=== PATIENT | male | born 1955 | race Hispanic/Latino ===

== ENCOUNTER 2019-02-05 22:28 | Emergency (ER) | payer BC ==
[2019-02-05] MEDS ORDERED: ONDANSETRON 4 MG/2 ML VIAL ONE (23:21)
[2019-02-05] MEDS ORDERED: KETOROLAC 30 MG/ML INJ ONE (23:21)
[2019-02-05] MEDS ORDERED: DIPHENHYDRAMINE 50 MG/ML VIAL ONE (23:21)
--- NOTE | 2019-02-06 00:08 | EDPHYS ---
Physician Documentation [facility] Name: Issa Escalera Age: 63 yrs Sex: Male : 1955 Arrival Date: 02/05/2019 Time: 22:29 Bed 7 Private MD: Olu Kennedy R ED Physician Montez Madsen Historical: - Allergies: 02/05 23:12 No Known Allergies; bb - Home Meds: 23:01 Amoxicillin-Pot Clavulanate Oral [Active]; Fioricet 50-325-40 mg Oral tab 1 tab daily bb [Active]; ezetimibe oral oral [Active]; glimepiride 2 mg Oral tab 1 tab twice a day [Active]; quetiapine 25 mg oral tab 1 tab nightly [Active]; Lyrica Oral [Active]; atorvastatin 40 mg oral tab 1 tab once daily [Active]; 23:12 telmisartan-hydrochlorothiazid 80-12.5 mg oral tab 1 tab once daily [Active]; botox bb injections every 3 months [Active]; - PMHx: 23:01 High Cholesterol; Hypertension; Migraines; Diabetes - NIDDM; bb - PSHx: 23:01 Eye surgery x3; Nasal surgery for bone spurs; right ankle; back surgery; bb - Immunization history:: Adult Immunizations up to date. - Social history:: Smoking status: Patient/guardian denies using tobacco, Patient/guardian denies using alcohol, street drugs. - Ebola Screening: : No symptoms or risks identified at this time. Vital Signs: 23:02 BP 175 / 105; Pulse 79; Resp 20 S; Temp 98.4(O); Pulse Ox 97% on R/A; Weight 90.72 kg bb (R); Height 5 ft. 7 in. (170.18 cm) (R); Pain 10/10; 23:17 BP 154 / 94; Pulse 66; Resp 20; Pulse Ox 95% on R/A; aa1 23:49 BP 128 / 77; Pulse 62; Resp 18; Pulse Ox 95% on R/A; Pain 3/10; aa1 23:02 Body Mass Index 31.32 (90.72 kg, 170.18 cm) bb MDM: 22:53 Patient medically screened. tw4 Administered Medications: 23:25 Drug: TORadol 30 mg Route: IVP; Site: right wrist; lp1 23:25 Drug: Zofran 4 mg Route: IVP; Site: right wrist; lp1 23:25 Drug: Benadryl 25 mg Route: IVP; Site: right wrist; lp1 Disposition: 02/06/19 00:07 Discharged to Home. Impression: Migraine with aura, not intractable, with status migrainosus. - Condition is Stable. - Discharge Instructions: Migraine Headache, Migraine Headache, [id number]. - Prescriptions for Zofran 4 mg Oral Tablet - take 1 tablet by ORAL route every 12 hours As needed; 6 tablet. - Medication Reconciliation Form, Thank You Letter, Antibiotic Education, Prescription Opioid Use form. - Follow up: Olu Kennedy MD; When: Upon discharge from the Emergency Department; Reason: If symptoms return, Recheck today's complaints, Continuance of care. - Problem is new. - Symptoms have improved. Signatures: Pooja Piedra RN RN aa1 Herminia Abel RN RN bb Brittaney Beyer RN RN lp1 Montez Madsen MD MD tw4 Corrections: (The following items were deleted from the chart) 23:12 23:01 Allergies: No Known Allergies; hedy knott 02/06 00:24 00:07 02/06/2019 00:07 Discharged to Home. Impression: Migraine with aura, not aa1 intractable, with status migrainosus. Condition is Stable. Forms are Medication Reconciliation Form, Thank You Letter, Antibiotic Education, Prescription Opioid Use. Follow up: Olu Kennedy; When: Upon discharge from the Emergency Department; Reason: If symptoms return, Recheck today's complaints, Continuance of care. Problem is new. Symptoms have improved. tw4
--- NOTE | 2019-02-06 00:08 | ER ---
Nurse's Notes [facility] Name: Issa Escalera Age: 63 yrs Sex: Male : 1955 Arrival Date: 02/05/2019 Time: 22:29 Bed 7 Private MD: Olu Kennedy R Diagnosis: Migraine with aura, not intractable, with status migrainosus Presentation: 02/05 22:35 Presenting complaint: Patient states: he has history of migraines and started having a bb bad migraine today around lunchtime. Transition of care: patient was not received from another setting of care. Onset of symptoms was February 05, 2019. Risk Assessment: Do you want to hurt yourself or someone else? Patient reports no desire to harm self or others. Initial Sepsis Screen: Does the patient meet any 2 criteria? No. Patient's initial sepsis screen is negative. Does the patient have a suspected source of infection? No. Patient's initial sepsis screen is negative. Care prior to arrival: None. 22:35 Method Of Arrival: Ambulatory bb 22:35 Acuity: MADELINE 4 bb Historical: - Allergies: 23:12 No Known Allergies; bb - Home Meds: 23:01 Amoxicillin-Pot Clavulanate Oral [Active]; Fioricet 50-325-40 mg Oral tab 1 tab daily bb [Active]; ezetimibe oral oral [Active]; glimepiride 2 mg Oral tab 1 tab twice a day [Active]; quetiapine 25 mg oral tab 1 tab nightly [Active]; Lyrica Oral [Active]; atorvastatin 40 mg oral tab 1 tab once daily [Active]; 23:12 telmisartan-hydrochlorothiazid 80-12.5 mg oral tab 1 tab once daily [Active]; botox bb injections every 3 months [Active]; - PMHx: 23:01 High Cholesterol; Hypertension; Migraines; Diabetes - NIDDM; bb - PSHx: 23:01 Eye surgery x3; Nasal surgery for bone spurs; right ankle; back surgery; bb - Immunization history:: Adult Immunizations up to date. - Social history:: Smoking status: Patient/guardian denies using tobacco, Patient/guardian denies using alcohol, street drugs. - Ebola Screening: : No symptoms or risks identified at this time. Assessment: 23:40 Reassessment: Patient appears in no apparent distress at this time. Patient and/or aa1 family updated on plan of care and expected duration. Pain level reassessed. Patient is alert, oriented x 3, equal unlabored respirations, skin warm/dry/pink. Pt reports pain has decreased to a 3 or 4 Patient states feeling better. Patient states symptoms have improved. Vital Signs: 23:02 BP 175 / 105; Pulse 79; Resp 20 S; Temp 98.4(O); Pulse Ox 97% on R/A; Weight 90.72 kg bb (R); Height 5 ft. 7 in. (170.18 cm) (R); Pain 10/10; 23:17 BP 154 / 94; Pulse 66; Resp 20; Pulse Ox 95% on R/A; aa1 23:49 BP 128 / 77; Pulse 62; Resp 18; Pulse Ox 95% on R/A; Pain 3/10; aa1 23:02 Body Mass Index 31.32 (90.72 kg, 170.18 cm) ED Course: 22:29 Patient arrived in ED. es 22:32 Olu Kennedy MD is Private Physician. es 22:50 Triage completed. bb 22:53 Montez Madsen MD is Attending Physician. tw4 23:02 Arm band placed on Patient placed in an exam room, on a stretcher, on pulse oximetry. bb Family accompanied patient. 23:12 Inserted saline lock: 20 gauge in right wrist, using aseptic technique. bb 23:17 Pooja Piedra RN is Primary Nurse. aa1 02/06 00:06 Olu Kennedy MD is Referral Physician. tw4 Administered Medications: 02/05 23:25 Drug: TORadol 30 mg Route: IVP; Site: right wrist; lp1 23:25 Drug: Zofran 4 mg Route: IVP; Site: right wrist; lp1 23:25 Drug: Benadryl 25 mg Route: IVP; Site: right wrist; lp1 Outcome: 02/06 00:07 Discharge ordered by . tw4 00:24 Patient left the ED. aa1 Signatures: Pooja Piedra RN RN aa1 Lizet Blum Brenda, RN RN Brittaney Beyer RN RN 1 Montez Madsen MD MD tw4 Corrections: (The following items were deleted from the chart) 02/05 23:12 23:01 Allergies: No Known Allergies; hedy knott
[2019-02-06 11:40] VITALS: TEMP 98.4
[2019-02-06 11:41] VITALS: O2SAT 95
[2019-02-06 11:42] VITALS: BP 128/77
== END 2019-02-06 00:24 | disposition home or self-care (01) ==
LOC: ER 22:28
DX: G43.101 Migraine with aura, not intractable, with status migrainosus (principal); I10 Essential (primary) hypertension; E11.9 Type 2 diabetes mellitus without complications; E78.00 Pure hypercholesterolemia, unspecified
CPT/HCPCS: 96374; 96375; 99283; J2405

== ENCOUNTER 2020-05-11 11:34 | Emergency (ER) | payer OTHER, BC ==
--- NOTE | 2020-05-11 13:34 | RAD REPORT ---
EXAM DESCRIPTION: RAD - Chest Single View - 05/11/2020 1:19 pm CLINICAL HISTORY: COUGH Chest pain. COMPARISON: CHEST SINGLE VIEW dated 02/27/2010; CHEST PA AND LAT 2 VIEW dated 11/30/2006 FINDINGS: Portable technique limits examination quality. Mild bilateral interstitial lung opacities are seen which could indicate interstitial pneumonia. No f ocal consolidation is seen. The heart is normal in size. No displaced fractures. IMPRESSION: Mild interstitial pneumonia pattern is present.
--- OUTSIDE RECORDS SUMMARY | 2020-05-11 14:01 | XMS REPORT | Clinical Summary ---
:1955 Author Organization [facility] Address [address] [place] [address] Care Team Providers Name Role Phone Olu Castellon Primary Care Provider [phone] Allergies No Known Allergies Medications Medication Sig Dispensed Refills Start Date End Date Status amLODIPine Take 10 mg by 0 Activ e (NORVASC) 10 MG mouth daily. tablet atorvastatin Take 40 mg by 0 Act coral (LIPITOR) 40 MG mouth daily. tablet QUEtiapine Take 25 mg by 0 Activ e (SEROQUEL) 25 MG mouth nightly. tablet butalbital-acetamin Take 1 tablet 0 Active ophen-caffeine by mouth every (FIORICET, ESGIC) 6 (six) hours 50-325-40 mg per as needed for tablet Headaches. pregabalin (LYRICA) Take 75 mg by 0 Active 75 MG capsule mouth daily. glimepiride Take 2 mg by 0 Activ e (AMARYL) 2 MG mouth 2 (two) tablet times daily. ezetimibe (ZETIA) Take 10 mg by 0 Active 10 mg tablet mouth daily. naproxen (NAPROSYN) Take 500 mg by 0 Active 500 MG tablet mouth 2 (two) times daily with breakfast and dinner. traMADol (ULTRAM) Take 2 tablets 20 tablet 0 12/14/2019 Active 50 mg tablet (100 mg total) by mouth every 6 (six) hours as needed for Pain. Max Daily Amount: 400 mg ciprofloxacin HCl Take 1 tablet 6 tablet 0 12/14/2019 02 (CIPRO) 500 MG (500 mg total) 0 tablet by mouth 2 (two) times daily for 3 days Start taking day before you return to Urology clinic. docusate sodium Take 1 capsule 10 capsule 0 12/14/2019 02 Discontinued (COLACE) 100 MG (100 mg total) 0 capsule by mouth 2 (two) times daily for 5 days. docusate sodium Take 1 capsule 10 capsule 0 12/14/2019 02 (COLACE) 100 MG (100 mg total) 0 capsule by mouth 2 (two) times daily for 5 days. Active Problems Problem Noted Date Prostate cancer 12/12/2019 Encounters Date Type Specialty Care Team Description 12/12/2019 Anesthesia Event Thomas Vora MD 12/12/2019 Surgery Link, Sami ROBOTIC MD Ramy LAPAROSCOPY,PRO STAT ECTOMY W/ PELVI C LYMPH NODE DISSECTION 12/12/2019 - Hospital Encounter General Internal LinkSami 12/14/2019 Medicine MD Ramy 12/11/2019 Hospital Encounter Pre-Admission Testing 07/11/2019 Hospital Encounter Magnetic Resonance Link, Sami Pr ostate cancer Imaging MD Ramy ([facility]) 3, [facility] Josh Mr 07/01/2019 Outside Orders Central Scheduling Link, Sami Prosta te cancer MD Ramy ([facility]) (Primary Dx) after 05/11/2019 Social History Tobacco Use Types Packs/Day Years Used Date Never Smoker Smokeless Tobacco: Never Used Alcohol Use Drinks/Week oz/Week Comments No Alcohol Habits Answer Date Recorded How often do you have a drink containing alcohol? Never 12/11/2019 How many drinks containing alcohol do you have on a typical Not asked day when you are drinking? How often do you have six or more drinks on one occasion? No t asked Sex Assigned at Date Recorded Not on file Job Start Date Occupation Industry Not on file Not on file Not on file Travel History Travel Start Travel End No recent travel history available. Last Filed Vital Signs Vital Sign Reading Time Taken Blood Pressure 123/68 12/14/2019 11:53 AM COST RECOVERY TECHNICIAN Pulse 74 12/14/2019 11:53 AM COST RECOVERY TECHNICIAN Temperature 37.6 C (99.7 F) 12/14/2019 11:53 AM COST RECOVERY TECHNICIAN Respiratory Rate 18 12/14/2019 11:53 AM COST RECOVERY TECHNICIAN Oxygen Saturation 95% 12/14/2019 11:53 AM COST RECOVERY TECHNICIAN Inhaled Oxygen Concentration - - Weight 88.8 kg (195 lb 12.3 oz) 12/12/2019 6:5 3 AM COST RECOVERY TECHNICIAN Height 172.7 cm (5' 8") 12/12/2019 6:53 AM COST RECOVERY TECHNICIAN Body Mass Index 29.77 12/12/2019 6:53 AM COST RECOVERY TECHNICIAN Plan of Treatment Not on file Procedures Procedure Name Priority Date/Time Associated Comments Diagnosis POCT-GLUCOSE METER Routine 12/14/2019 11:55 Resul ts for this AM COST RECOVERY TECHNICIAN procedure are i n the results section. POCT-GLUCOSE METER Routine 12/14/2019 7:44 Resul ts for this AM COST RECOVERY TECHNICIAN procedure are i n the results section. CBC W/PLT COUNT & Routine 12/14/2019 4:46 Result s for this AUTO DIFFERENTIAL AM COST RECOVERY TECHNICIAN procedure are in the results section. CBC W/PLT COUNT & Routine 12/14/2019 4:46 Result s for this AUTO DIFFERENTIAL AM COST RECOVERY TECHNICIAN procedure are in the results section. BASIC METABOLIC PANEL Routine 12/14/2019 4:43 Re sults for this (7) AM COST RECOVERY TECHNICIAN procedure are i n the results section. POCT-GLUCOSE METER Routine 12/13/2019 10:14 Resul ts for this PM COST RECOVERY TECHNICIAN procedure are i n the results section. POCT-GLUCOSE METER Routine 12/13/2019 5:59 Resul ts for this PM COST RECOVERY TECHNICIAN procedure are i n the results section. TRANSFUSION SERVICE 12/13/2019 5:51 REPORT - SCAN PM COST RECOVERY TECHNICIAN POCT-GLUCOSE METER Routine 12/13/2019 11:42 Resul ts for this AM COST RECOVERY TECHNICIAN procedure are i n the results section. POCT-GLUCOSE METER Routine 12/13/2019 8:32 Resul ts for this AM COST RECOVERY TECHNICIAN procedure are i n the results section. CBC W/PLT COUNT & Routine 12/13/2019 4:13 Result s for this AUTO DIFFERENTIAL AM COST RECOVERY TECHNICIAN procedure are in the results section. CBC W/PLT COUNT & Routine 12/13/2019 4:13 Result s for this AUTO DIFFERENTIAL AM COST RECOVERY TECHNICIAN procedure are in the results section. BASIC METABOLIC PANEL Routine 12/13/2019 4:13 Re sults for this (7) AM COST RECOVERY TECHNICIAN procedure are i n the results section. POCT-GLUCOSE METER Routine 12/12/2019 9:01 Resul ts for this PM COST RECOVERY TECHNICIAN procedure are i n the results section. POCT-GLUCOSE METER Routine 12/12/2019 2:25 Resul ts for this PM COST RECOVERY TECHNICIAN procedure are i n the results section. HEMOGLOBIN AND Routine 12/12/2019 2:14 Results f or this HEMATOCRIT PM COST RECOVERY TECHNICIAN procedure are i n the results section. BASIC METABOLIC PANEL Routine 12/12/2019 2:14 Re sults for this (7) PM COST RECOVERY TECHNICIAN procedure are i n the results section. TISSUE EXAM AP Routine 12/12/2019 9:36 Results for this AM COST RECOVERY TECHNICIAN procedure are i n the results section. ABORH, MANUAL STAT 12/12/2019 8:15 Results fo r this AM COST RECOVERY TECHNICIAN procedure are i n the results section. PROCEDURE W/ DAVINCI 12/12/2019 7:30 Prostate cancer AM COST RECOVERY TECHNICIAN (HCC) Case Notes 4 HRS PER ADDISON Special Needs (DAVINCI XI - XI REQUESTED) ROBOTIC LAPAROSCOPY,PROSTATECTOMY W/ 12/12/2019 7:30 AM COST RECOVERY TECHNICIAN Prostate cancer PELVIC LYMPH NODE DISSECTION (HCC) Case Notes 4 HRS PER ADDISON Special Needs (DAVINCI XI - XI REQUESTED) POCT-GLUCOSE METER Routine 12/12/2019 6:46 AM Re sults for this COST RECOVERY TECHNICIAN procedure are i n the results section. TYPE AND SCREEN, Routine 12/12/2019 6:36 AM Resu lts for this AUTOMATED COST RECOVERY TECHNICIAN procedure are i n the results section. MR PELVIS WITH & Routine 07/11/2019 9:50 AM Prostate cancer R esults for this WITHOUT IV CONTRAST CDT (HCC) procedur e are in the results section. POCT-CREATININE Routine 07/11/2019 8:47 AM Resul ts for this CDT procedure are i n the results section. after 05/11/2019 Results POC-Glucose meter (12/14/2019 11:55 AM COST RECOVERY TECHNICIAN)Only the most recent of9 results within the time period is included. POC-Glucose Meter 162 (H)Comment: : TESTED 70 - 110 mg/dL [facility] AT [address] [facility], [address]: Merchandise Flow Team Leader/Heat Curer ID = [id number] for ASTON VANEGAS Specimen Blood Performing Organization Address City/State/Zipcode Phone Number [facility] [address] [place] [address] CENTER CBC with platelet count + automated diff (12/14/2019 4:46 AM COST RECOVERY TECHNICIAN)Only the most recent of2 resultswithin the time period is included. WBC 10.1 3.5 - 10.5 K/L [facility] RBC 4.07 (L) 4.63 - 6.08 M/L [facility] Hemoglobin 11.1 (L) 13.7 - 17.5 GM/DL [facility] Hematocrit 34.4 (L) 40.1 - 51.0 % [facility] MCV 84.5 79.0 - 92.[address] [facility] MCH 27.3 25.7 - 32.2 pg [facility] MCHC 32.3 32.3 - 36.5 GM/DL [facility] RDW 13.5 11.6 - 14.4 % [facility] Platelets 167 150 - 450 K/CU MM [facility] MPV 10.5 9.4 - 12.4 fL [facility] nRBC 0 0 - 0 /100 WBC [facility] % Neutros 75 % [facility] % Lymphs 15 % [facility] % Monos 8 % [facility] % Eos 1 % [facility] % Baso 0 % [facility] # Neutros 7.58 (H) 1.78 - 5.38 K/L [facility] # Lymphs 1.54 1.32 - 3.57 K/L [facility] # Monos 0.84 (H) 0.30 - 0.82 K/L [facility] # Eos 0.09 0.04 - 0.54 K/L [facility] # Baso 0.04 0.01 - 0.08 K/L [facility] Immature Granulocytes-Relative 0 0 - 1 % C [facility] Specimen Blood Performing Organization Address City/[facility]/Zipcode Phone Number [facility] [address] [place] [address] CENTER Basic Metabolic Panel - In AM (12/14/2019 4:43 AM COST RECOVERY TECHNICIAN)Only the most recent of3 resultswithin the time period is included. Sodium 136 136 - 145 meq/L [facility] Potassium 3.8 3.5 - 5.1 meq/L [facility] Chloride 105 98 - 107 meq/L [facility] CO2 25 22 - 29 meq/L [facility] BUN 14 7 - 21 mg/dL [facility] Creatinine 0.91 0.57 - 1.25 mg/dL [facility] Glucose 131 (H) 70 - 105 mg/dL [facility] Calcium 8.2 (L) 8.4 - 10.2 mg/dL [facility] EGFR 84Comment: ESTIMATED GFR IS mL/min/1.73 sq m [facility] NOT ACCURATE CREATININE [facility] CLEARANCE IN PREDICTING GLOMERULAR FILTRATION RATE. ESTIMATED GFR IS NOT APPLICABLE FOR DIALYSIS PATIENTS. Specimen Blood Narrative Performed At Merchandise Flow Team Leader ID - [facility] Performing Organization Address City/[facility]/Zipcode Phone Number [facility] [address] [place] [address] [employer] TRANSFUSION SERVICE REPORT - SCAN (12/13/2019 5:51 PM COST RECOVERY TECHNICIAN) Narrative Performed At This result has an attachment that is no t available. Hemoglobin and hematocrit (12/12/2019 2:14 PM COST RECOVERY TECHNICIAN) Hemoglobin 11.9 (L) 13.7 - 17.5 GM/DL [facility] Hematocrit 36.7 (L) 40.1 - 51.0 % [facility] Specimen Blood Narrative Performed At Merchandise Flow Team Leader ID - [id number] [facility] CENTER Performing Organization Address City/State/Zipcode Phone Number [facility] [address] [place] [address] CENTER Tissue Exam (12/12/2019 9:36 AM COST RECOVERY TECHNICIAN) Case Report Surgical Pathology Report Case: [id number] [facility] Authorizing Provider:Sami Wright MD Collected: 12/12/2019 0936 [facility] Ordering Location: [facility] Received:12/13/2019 0832 SERVICES Pathologist: Sim Arrington MD Specimens: A) - Lymph No de, CHASE PROSTATIC LYMPH NODES B) - Lymph Node, Left pelvic lymph nodes C) - Lymph Node, Right pelvic lymph nodes D) - Prostate DIAGNOSIS A. LYMPH NODES, PERIPROSTATIC, DISSECTION [facility] - THREE BENIGN LYMPH NODES (0/3) [facility] B. LYMPH NODES, LEFT PELVIC, DISSECTION - FOUR BENIGN LYMPH NODES (0/4) C. LYMPH NODES, RIGHT PELVIC, DISSECTION - FIVE BENIGN LYMPH NODES (0/5) D. PROSTATE, ROBOTIC-ASSISTED RADICAL PROSTATECT DARRELL: - ADENOCARCINOMA, ELTON 3+4=7, FOCAL EXTRAP ROSTATIC EXTENSION, SURGICAL MARGINS NEGATIVE SEMINAL VESICLES, ROBOTIC-ASSISTED RADICAL FL OSTATECTOMY: - NO PATHOLOGIC DIAGNOSIS Signing Pathologist Direct Phone Line: COMMENT Sections show extensive bila teral cancer in anterior transition zone. There are smaller cancers in the peripheral zone. The focal extraprostatic extension is anteriorly on the right but is well clear o [facility] f the surgical margins. Exc ellent preservation of the neurovascular bundles is noted from examination of the surgical specimen. [facility] REPORT PROSTATE GLAND: Radical Pros tatectomy(Prostate - All Specimens) [facility] ER 8th Edition - Protocol posted: 01/02/2019 : SPECIMEN Procedure:Radical prostatectomy Prostate Size: Prostate Weight (g):89 g Prostate Greatest Dimension (Centimeter s):6.6 cm Additional Dimension (Centimeters): 4.2 cm Additional Dimension (Centimeters): 3.6 cm TUMOR Histologic Type:Acinar adenocarcino ma Histologic Grade: Grade Group and Gle ason Score:Grade group 2 (Elton Score 3 + 4 = 7) Percentage of Pattern 4:30 % : Percentage of Pattern 4:30 % Percentage of Pattern 5:3 % Intraductal Carcinoma (IDC):Not identif ied Extraprostatic Extension (EPE):Present, focal Location of Extraprostatic Extension: Right anterior Urinary Bladder Neck Invasion:Not ident ified Seminal Vesicle Invasion:Not identified Treatment Effect:No known presurgical t herapy Lymphovascular Invasion:Not Identified Perineural Invasion:Present MARGINS Margins:Uninvolved by invasive carcinom a LYMPH NODES Number of Lymph Nodes Involved:0 Number of Lymph Nodes Examined:12 PATHOLOGIC STAGE CLASSIFICATION (pTNM, AJCC 8th Edition) Primary Tumor (pT):pT3a Regional Lymph Nodes (pN):pN0 ADDITIONAL FINDINGS Additional Findings: High-grade prostatic intraepithelial neoplasia (PIN) Additional Findings:Nodular prostatic h yperplasia CPT Code(s) 70145 X 3 [facility] [address] [facility] CLINICAL HISTORY Prostate cancer [facility] SPECIMEN SOURCE A. Lymph node. B. Lymph node. [facility] C. Lymph node. D. Prostate [facility] A. Received in formalin labe led with the patient's name, accession number and "periprostatic lymph nodes" is a 3.9 x 2.5 x 0.3 cm aggregate of vergara-yellow fibrofatty adipose tissue, which is entirely submitted in A1-A2. [facility] B. Received in formalin labe led with the patient's name, accession number and "left pelvic lymph nodes" are three possible vergara-pink lymph nodes with attached soft tissue that range from 1.0 to 2.7 cm in greatest dimension. The specimen is entirely partida bmitted as follows: Section code: B1-B2-one lymph node, bisected B3-B4, one lymph node, bisected B5-one lymph node, bisected B6-remainder of soft tissue C. Received in formalin labe led with the patient's name, accession number and "right pelvic lymph nodes" is a 5.8 x 3.4 x 1.0 cm portion of vergara-yellow fibrofatty adipose tissue containing three vergara-pink lymph nodes that range from 0.7 to 2.3 cm in greatest dimension. The specimen is entirely submitted as follows: Section code: C1-one lymph node, bisected C2-one lymph node, bisected C3-one lymph node, bisected [id number]-rgwjsmupn of soft tissue D. Received in formalin labe led with the patient's name, accession number and "prostate" is an 89 gm total prostatectomy specimen, which consists of an 80.3 gm, 6.6 (transverse) x 4.2 (apex-base) x 3.6 (anterior-posterior) cm pros navarro, a 2.5 x 1.2 x 0.5 cm right seminal vesicle, a 2.5 x 1.3 x 0.4 cm left seminal vesicle, a 3.5 cm in length x 0.3 cm in diameter right vas deferens, and a 2.4 cm in lengt h x 0.3 cm in diameter left vas deferens. The right half is inked black, and the left half is inked blue. The specimen is serially sectioned from apex to base to reveal a vergara-pink, heterogenous, focally spongy cut surface. The specimen is entirely partida bmitted as follows: Section code: D1-apex margin, radially sectioned D2-bladder base margin, radially sectioned [id number], sequentially submitted from ape x to base [id number]-[id number] seminal vesicle and vas deferens [id number] seminal vesicle and vas deferens PA/ew MICROSCOPIC DESCRIPTION Performed. [facility] Specimen Tissue Tissue - Structure of lymph node (body s tructure) Tissue - Structure of lymph node (body s tructure) Tissue - Prostatic structure (body struc ture) Performing Organization Address City/State/Zipcode Phone Number [place] [phone] [place] [address] CENTER ABORH, manual (12/12/2019 8:15 AM COST RECOVERY TECHNICIAN) ABO Grouping O [facility] Rh Factor POS [facility] Specimen Blood Performing Organization Address City/State/Zipcode Phone Number [facility] [address] [place] [address] Type and screen, automated (12/12/2019 6:36 AM COST RECOVERY TECHNICIAN) ABO/RH AUTOMATED (BEAKER) O POSITIVE [facility] Ab Scrn NEGATIVE [facility] Specimen Blood Performing Organization Address City/State/Zipcode Phone Number [facility] [address] [place] [address] MR pelvis without & with IV contrast (07/11/2019 9:50 AM CDT) Specimen Narrative Performed At FINAL REPORT [employer] TECHNIQUE: MRI of the prostate WITHOUT a nd WITH intravenous contrast. INDICATION: PROSTATE CANCER. COMPARISON: None. FINDINGS: PROSTATE: The prostate is enlarged measu ring 5.5 x 5.6 x 6.1 cm (96.7 cc). A indistinct noncircumcised, homoge neously hypointense 2.8 x 1.5 x 4.2 cm lesion centered along the anter ior aspect of the transitional zone (series 4, image 16 an d series 5, image 11). This lesion does demonstrate restricted diffu fermin (series 9, image 35) and prompt arterial phase enhancement. No di sruption of the prostatic capsule. Multiple heterogeneously enhancing, pred ominantly T2 hyperintense nodules and the transitional zone compat ible with benign prostatic hypertrophy nodules. No focal T2 signal abnormalities in the peripheral zone. SEMINAL VESICLES: Unremarkable. LYMPH NODES: No pelvic lymphadenopathy. BLADDER: Unremarkable. RECTUM: Unremarkable. PERITONEUM/RETROPERITONEUM: No free flui d. BONES AND SOFT TISSUES: Unremarkable. IMPRESSION: 1.Highly suspicious 4 cm indistinct mass in the anterior transitional zone as above (PI-RADS 5). No evidence o f local regional invasion. 2.Moderately enlarged prostate with mult iple BPH nodules. Signed: Sherif Bell MD Report Verified Date/Time:07/12/2019 13:06:34 Reading Location: [address] Procedure Note Interface, External Ris In - 07/12/2019 1:08 PM CDT FINAL REPORT TECHNIQUE: MRI of the prostate WITHOUT a nd WITH intravenous contrast. INDICATION: PROSTATE CANCER. COMPARISON: None. FINDINGS: PROSTATE: The prostate is enlarged measu ring 5.5 x 5.6 x 6.1 cm (96.7 cc). A indistinct noncircumcised, homoge neously hypointense 2.8 x 1.5 x 4.2 cm lesion centered along the anter ior aspect of the transitional zone (series 4, image 16 an d series 5, image 11). This lesion does demonstrate restricted diffu fermin (series 9, image 35) and prompt arterial phase enhancement. No di sruption of the prostatic capsule. Multiple heterogeneously enhancing, pred ominantly T2 hyperintense nodules and the transitional zone compat ible with benign prostatic hypertrophy nodules. No focal T2 signal abnormalities in the peripheral zone. SEMINAL VESICLES: Unremarkable. LYMPH NODES: No pelvic lymphadenopathy. BLADDER: Unremarkable. RECTUM: Unremarkable. PERITONEUM/RETROPERITONEUM: No free flui d. BONES AND SOFT TISSUES: Unremarkable. IMPRESSION: 1.Highly suspicious 4 cm indistinct mass in the anterior transitional zone as above (PI-RADS 5). No evidence o f local regional invasion. 2.Moderately enlarged prostate with mult iple BPH nodules. Signed: Sherif Bell MD Report Verified Date/Time: 07/12/2019 1 3:06:34 Reading Location: [address] Performing Organization Address City/State/Zipcode Phone Number [facility] POC-Creatinine (07/11/2019 8:47 AM CDT) POC-Creatinine 0.9Comment: TESTED AT [facility] 0.6 - 1.3 mg/dL [facility] [address] [facility] [address] POC-EGFR 85 mL/min/1.73M2 [facility] CENTER Specimen Blood Performing Organization Address City/[facility]/Zipcode Phone Number [facility] [address] [place] [address] CENTER after 05/11/2019 Insurance Payer Benefit Plan / Subscriber ID Type Phone Address Group BLUE CROSS/BLUE BCBS ADV HMO xxxxxxxxxxxx [phone] [address] [place] [employer] [address] Advance Directives For more information, please contact:[address] [phone] Code Status Date Activated Date Inactivated Comments Full Code 12/12/2019 4:38 PM 12/14/2019 6:35 PM This code status was determined by: Patient
--- OUTSIDE RECORDS SUMMARY | 2020-05-11 14:02 | XMS REPORT | Continuity of Care Document ---
:1955 Author Organization [facility] t Address [address] [place] [address] Care Team Providers Name Role Phone Olu Castellon Primary Care Physician [phone] Aaron Garcia MD Attending Clinician RAMY GARCIA Attending Clinician Unavailable Ramy Garcia MD Attending Clinician Diony DOWELL Attending Clinician Saturnino Pacheco MD Attending Clinician Mando DOWELL Attending Clinician Imaging, [facility] Attending Clinician Unavailable 3, Josh Latif Attending Clinician Unavailable RAMY GARCIA Admitting Clinician Unavailable Payers Payer Name Policy Type Policy Number Effective Date Expiration Date S sharad BLUE CROSS/BLUE xxxxxxxxxxxx [facility] EXCHANGExxxxxxxx [phone] [id number], [place] [address] Problems Condition Condition Condition Status Onset Resolution Last Treating Co mments Source Name Details Category Date Date Treatment Clinician Date Prostate Prostate Disease Active [facility] - [facility] Allergies, Adverse Reactions, Alerts This patient has no known allergies or adverse reactions. Social History Social Habit Start Date Stop Date Quantity Comments Source History SDOH Alcohol [facility] - Std [facility] History SDOH Alcohol [facility] - Binge [facility] Center Sex Assigned At [facility] History SDOH Alcohol 2019-12-11 2019-12-11 1 [facility]:00 [facility]:00 [facility] Smoking Status Start Date Stop Date Source Never smoker [facility] edical Center Medications Ordered Filled Start Stop Current Ordering Indication Dosage Frequency Signature Comments Components Source Medication Medication Date Date Medication? Clinician (SIG) Name Name traMADol 2019-0 Yes 100mg Take [address] [facility] (ULTRAM) 50 2-08 tablets [facility] - mg tablet 00:00: (100 mg Medic al 00 total) by Center mouth every 6 (six) hours as needed for Pain. Max Daily Amount: 400 mg docusate 2020-0 2020- No 100mg Q.5D Take 1 [facility] sodium 12-14 capsule [facility] - (COLACE) 00:00: 23:59 (100 mg Medic al 100 MG 00 :00 total) by Center capsule mouth 2 (two) times daily for 5 days. ciprofloxac 2020-0 2020- No 500mg Q.5D Take [address] in HCl 12-14- tablet [facility] - (CIPRO) 500 00:00: 23:59 (500 mg Me dical MG tablet 00 :00 total) by Cente r mouth 2 (two) times daily for 3 days Start taking day before you return to Urology clinic. docusate 2020-0 2020- No 100mg Q.5D Take 1 [facility] sodium 12-14- capsule [facility] - (COLACE) 00:00: 00:00 (100 mg Medic al 100 MG 00 :00 total) by Center capsule mouth 2 (two) times daily for 5 days. ezetimibe 2019-0 Yes 10mg QD Take [address] (ZETIA) 10 2-05 by mouth [facility] - mg tablet 13:17: daily. Medica l 06 Center naproxen 2020-0 Yes 500mg Take [address] [facility] [address] (NAPROSYN) 2-05 mg by [facility] - 500 MG 13:17: mouth 2 Medical tablet 06 (two) Center times daily with breakfast and dinner. amLODIPine 2020-0 Yes 10mg QD Take [address] (NORVASC) 2-05 by mouth [facility] - 10 MG 13:17: daily. Medical tablet 05 [place] atorvastati 0 Yes 40mg QD Take [address] [facility] (LIPITOR) 2-05 by mouth [facility] s - 40 MG 13:17: daily. Medical tablet 05 [place] QUEtiapine Yes 25mg QD Take [address] (SEROQUEL) 2-05 by mouth [facility] - 25 MG 13:17: nightly. Medical tablet 05 [place] butalbital- Yes 1{tbl} Take [address] acetaminoph 2-05 tablet by [facility] es - en-caffeine 13:17: mouth Medic al (FIORICET, 05 every 6 Center ESGIC) (six) 50-325-40 hours as mg per needed for tablet Headaches. pregabalin Yes 75mg QD Take [address] (LYRICA) 75 2-05 by mouth Luke s - MG capsule 13:17: daily. Medic al 05 [place] glimepiride Yes 2mg Q.5D Take [address] (AMARYL) 2 2-05 by mouth 2 [facility] - MG tablet 13:17: (two) Medical 05 times Center daily. Vital Signs Vital Name Observation Time Observation Value Comments Source Systolic blood 2019-12-14 11:53:00 123 mm[Hg] [facility] Diastolic blood 2019-12-14 11:53:00 68 mm[Hg] [facility] Heart rate 2019-12-14 11:53:00 74 /min [facility] Body temperature 2019-12-14 11:53:00 37.61 Jennifer [facility] Respiratory rate 2019-12-14 11:53:00 18 /min [facility] Oxygen saturation in 2019-12-14 11:53:00 95 /min [facility] Arterial blood by Medical nter Pulse oximetry Body height 2019-12-12 06:53:00 172.7 cm [facility] Body weight Measured 2019-12-12 06:53:00 88.8 kg [facility] BMI 2019-12-12 06:53:00 29.77 kg/m2 [facility] Procedures Procedure Date / Time Performed Performing Clinician Nova padron POCT-GLUCOSE METER 2019-12-14 11:55:00 Sami Garcia [facility] POCT-GLUCOSE METER 2019-12-14 07:44:00 Hardeep [facility] CBC W/PLT COUNT & AUTO 2019-12-14 04:46:00 Pranav Tay [facility] S t [facility] DIFFERENTIAL [facility] BASIC METABOLIC PANEL 2019-12-14 04:43:00 [facility] () [facility] POCT-GLUCOSE METER 2019-12-13 22:14:00 Hardeep [facility] POCT-GLUCOSE METER 2019-12-13 17:59:00 Hardeep [facility] TRANSFUSION SERVICE 2019-12-13 17:51:10 ProviderAna M [facility] REPORT - SCAN Scanning [facility] POCT-GLUCOSE METER 2019-12-13 11:42:00 Hardeep [facility] POCT-GLUCOSE METER 2019-12-13 08:32:00 Hardeep [facility] BASIC METABOLIC PANEL 2019-12-13 04:13:00 Pranav Tay [facility] () [facility] CBC W/PLT COUNT & AUTO 2019-12-13 04:13:00 Pranav Tay [facility] S t [facility] DIFFERENTIAL [facility] POCT-GLUCOSE METER 2019-12-12 21:01:00 Hardeep [facility] POCT-GLUCOSE METER 2019-12-12 14:25:00 Hardeep [facility] BASIC METABOLIC PANEL 2019-12-12 14:14:00 [facility] () [facility] HEMOGLOBIN AND 2019-12-12 14:14:00 Maggi Pranav [facility] HEMATOCRIT [facility] TISSUE EXAM 2019-12-12 09:36:00 Hardeep [facility] ABORH, MANUAL 2019-12-12 08:15:00 Mercedes Martínez [facility] ROBOTIC 2019-12-12 07:30:00 Sami Garcia [facility] - LAPAROSCOPY,PROSTATECTOM [facility] Y W/ PELVIC LYMPH NODE DISSECTION PROCEDURE W/ DAVINCI 2019-12-12 07:30:00 Sami Garcia [facility] POCT-GLUCOSE METER 2019-12-12 06:46:00 Sami Garcia [facility] TYPE AND SCREEN, 2019-12-12 06:36:00 Pranav Tay [facility] s - AUTOMATED [facility] MR PELVIS WITH & WITHOUT 2019-07-11 09:50:00 Sami Garcia [facility] IV CONTRAST [facility] POCT-CREATININE 2019-07-11 08:47:00 Sami Garcia [facility] Encounters Start End Encounter Admission Attending Care Care Encounter Source Date/Time Date/Time Type Type Clinicians Facility Department ID 2019-12-30 2019-12-30 Office Hardeep [facility] [id number] 14:41:13 16:09:37 Visit Sami Padron AMBULATOR [id number] Y [id number] 2019-12-11 2019-12-11 Office SEBASTIAN Pacheco [id number] 14:48:05 15:35:57 Visit Rick AMBULATOR [id number] [place] Y [id number] [id number] 2019-08-28 2019-08-28 Office Bacilio Gilmore [facility] [id number] 14:48:36 16:20:37 Visit Imaging, Us Uro AMBULATOR 350.1.13. 21 Y [id number] 2019-07-01 2019-07-01 Office Link [facility] [id number] 08:53:05 09:57:33 Visit Sami Padron AMBULATOR [id number] Y [id number] Results Test Description Test Time Test Comments Results Result Comments Source Tissue Exam 2019-12-26 16:00:00 Test Item Value Reference Range Interpretation Comme nts Case Report (test code = 104) Surgical Pathology Report Case: [id number] Authorizing Provider: Sami Garcia MD Collected: 12/12/2019935 Ordering Location: [facility] Received: 12/13/2019 0832 SERVICES Pathologist: Sim Arrington MD Specimens: A) - Lymph Node, CHASE PROSTATIC LYMPH NODES B) - Lymph Node, Left pelvic lymph nodes C) - Lymph Node, Right pelvic lymph nodes D) - Prostate DIAGNOSIS (test code = 3220) [id number]ZlZkZeZs pcd WWiGIjjyjVeZKknz7JbN9RzXfDuKZfmdbOlNCSqKg tpbsytISOqRNR3xbRfGVWiTXofNWKnACmlJp4kzKC doQvlYgZzZGMtp5nsxlYWxjpgvJu1e1waXMKnShA9 bOFaASspM3xijhSgrDYjLTFyXPw4oH56ILZulT6fq YNlAFrydoMpDjQ5UKbeVYKsSrK7RQTcjPSdWEHuH4 siEBGnMRaqWKViOXnnrLRvFNS0pOkvs9Z3qTMwnSV hpUlsKaWgThGwBBIAx4NbSQe9eWupP1CnVYZkIrA7 oQXcEPQsFNxtZXSlFFKwdkZ0xL10HVxitwA2xGDvn 1Ujt36nv283pX4mpZQgVRS8URObZXOgzCGfTZPdTQ O3QJTjvPRnG3r0KnGhpGRiX7X0KsImhZRpE7V3FxC kaOBuD0Z5WsUdwISePOCxnBThXe5xwOBzbKKoex4h cs93QAH6z3PisAdnFTK6JCB9LyInIn8gvKOqZITzS L5sLtUsvVCjAPBwkv08bRjrHUvvahQqvY1eNgCwCG 6epSbdv94aASSyIG6gnL5jni4frbDzOInehSWqmAR 5cjzhLFB4CEAcyqNlb6FcVTR7te6wvWFtsOvrpfPl mBJkZUfoZ3YrSWRwi984UWCvG9XnOVSbb0E8idUlR fVtMBCrpNR2kxQ1CCFyBUn0pLPfipW9woRebLMsA8 lzrD47NzUuwSMcR7DinC92EoPiaLUrR6ScnD94WtX huFLlS5SupU22ZjTswWUnZEOfjAOaCw4dkYOygDTe z5PrySQaDArrQ22xa763AQHpxsHvQ0vmqRZnjduca GVdlttzRZifcpW2YORgmfBcs3OpTRJwUKI7UNrlJP eehQGnZGXbmCwdh5wsX3WnoJHjYWQjBAjrMRXlBPX zMjBcbGFuZzEwMzNcaGljaFxmMVxkYmNoXGYxXGxv R2biIjMtC9FtBLMlWdPsgLIoH0wdFX1rAGxTBGmpG m5PIWGlNColiCFnzatnTDxvgcDzBLtlyowmGYWdTX gqW2xzDiGdEGQgkLpxLTnvo2OwGSWaBNMfMtBtGZJ KBZNZC5RDMZXKM7dywCPatgatZYlbttMcLAnamxfc RVPnLUosN7wbFxHiYXLjuOoeGUjnu7XmZJUuUJEaM jnkpvNkSOd7lbRyXFpkSBtZP1FELZxHYtyyAWJmdw x+WWHrvLrkeE4pYkKmNkLgVQfqTB3uVOYvI2yhxBW sNFOjDGRxC9vaIePppN9bhBaoVSqhmpHxLYVUSoOY VDtmhNDjseceUAneqhHcGDhaqkzaILHaJUumD5oaU bZsRALbuQwjKBeem3BsTJNjFIPxVkapjxYnUUj7jg ZjVAHOLraLZqRLQG8TGKRHS8RSYvDaAI4xtIuujF5 gGjWiCtGqIAvbNQ1gGTHkJ1mmsLMxYUDwHOSrJ8bc HvVvyQ3mqWnePHpycnBiFMFarIphpZ9cDlSjQoNcE YlpTN5hNBZiJ8pcpMRzKYRtDGZbE7ldSnTwcU8icV xmMVxjZjJcZnMyMFxsdHJjaCApXHBhclx+XHBhciB JKbNRUA5JTGGYO8EVJugoGEFbKYfeLIZnUZUxBbNq tPVgVoWeVcSzwDvybVhhRFkzHpDqFBLzHYqiU7utI jFcZnMyMCBMRUZUXHBsYWluXGYxXGZzMjBcbGFuZz UcEgMhjCiyeXoeYWwiAdMoFIVrLKhfV4kqTkDuO6Z uEIIrIcIymGXpJ3ztYHSGSAUWEtfmMFlMT9VUYDzI TlxwYXJcflx+NPGdgOdixF2aGcJnOtXaSAxaRB6dN IKhL8jyhENuKRUlFYQzV7jnBfHtxN5keMztUOwplr GoOSTYD0JZEFXhSWbaQQVgZGTjAjGbgUViAlAjPwH rvEkmjHtbBWpcFpLcKBUqVXklN9kzTxUaT7FgDJRi PcZqgICfD5uqVVDBFsuIFnELTD2TSTYMK7APHkHhP A8txHvwcC2sYoKsYrSgPAlfAG6dAJFeG3vsiPBbJK IbPMHtD5brAbLvmZ5ocCipJZndahGuRSKnbZeofJ5 cRtYlDcZlAEebXH9fJKWdI6wwaTMpIRXvWDDyX2nn ZpXnrI5xcZdqKVblKdRaXsRiYPxneUTbwRNvSAWom lx+ENKnwrJUBeLLTQ6DJGDJM7LCJhcdfVpepC8vAu UdCnQcAAprPA8sDBXzW2mkoOUuTGHyTQHhV0tfVnM xbF0ksUjdPKozdfJvBXICJTpQMVicfDGiwmrwVKzg ocDjMGfhyufiYXMfXQimD3esArTrZWQfyFtnPQuhm 1UbUNJoWMLiKwqynxIyZRr3tdMsKVUFRXlJIUFsLA QQM6MAJ8AQW57thVInJA8ptl5fWMTjCOcgWTPgBRK zMjBcbGFuZzEwMzNcaGljaFxmMVxkYmNoXGYxXGxv S5tdAvMmDpQrWISwWkvJRFLAPD6HU67xTUdWJVpbG x5GGONcBCBmYXftoYRpYLLqcyCAYwxqjZKzbcxpVM mvazPcHAyodfdnIONjXZcrH5ggOxKvBIQipEwmXTj is4ZzYWWnMMMlLfaqtlCfZSw5fbZyKZVEVa0WTCRD ADzmKj1NS5ASYw4KL4LIX4GXIQLOQLVRS6BECITSD 3YKQGBSO4QEELaivJwvkX3jGjRkXjJlXQaoUZ7bWJ QuK8tdqBGtJLGhJRBwB6ajUbAviQ7prRcqBLbjagE wGRaetGXhPOQzvbQqk2NlZLUwMAQ0TRzzFKmdmVQr KCJekWzhxIeapO2lUdQsAbLtUPlrxABxurhzROdfs bRxKHbbuaeyTXOfADmuF2jxQzIqOGWyeMvwWZxmu6 RqEHSuJJWhMxNfKC0lust+QVFISNMPL2SRQiNUXs7 IDRlxV1uYNRGVUcArSdN8BsjlSj5AYIkfHRhLOaQB Bo6VZNGOXILhZLvUZV7QPB3VBVJobZUmNG2fhvs+X L3ifjSDAueQB9ZBCB5HVliJWzKeQiNGWSFDGaOerE FmSN4kerr+L7VIIZ7HZVKGOTDIF8fHVmioXd9UN4C PBr3YZ4IKB7PBKHIEPAOIP2UZEFXJC8VUSCLVH5CR VBt6JDtbKDUxhEFgMZnfp2HbtrBgqJbuLEMaYLk8s cFirfunpUg9yLLqgRsqBKAfyFqytV4rHrMtBqPnJB zpiAKyizwyJMaheaZyDQxqicvpZHBnAFcjJ1dfBfO zMBAufFfrGWyzq8BfBFMhIJBjPfBnNK9xwvb+LSBO UgZXCNSNW9yYL2dMZENIIOsOU5FPO2zlDHI7a1sze GYxXHNzdGUxODAwMFxhbnNpXGRlZmxhbmcxMDMzXG C4ltHjIOOhSOkcHYCsPRazKg3pwYXglMahYdSiMMI az1maaaLHiurskMq1r8muRGNqNdA9cLIgUKmqK3qb blFhaTVlQFUcWAz8wQ19TDHbdT2npDDgTGkjdlZvH lJ6YAmfUSWvJtK2TFVamCEnFABnY6ygOPTeCFxbOE TeZGvmiJJpBGN1uQetu9I6vMFafTDmpTshMdCoTzW vCbIHy6NkPDi9eOnnV0YdXKMzDhJ7xRPiNYDyPHoz WEPvSJZfjmC7cN55DFniqhG3jNNjx2Ndv19tr597e A6cpWSrBRM9EQBaGQBetGHzHOOpRUR2ATEluVQdK3 ppHUPlZY8yiewdBIfhDXnmFYCooKX4AEYgyBQqT5Q sHPPpBRkpCWTndvp4EmUkYk4bhYOuiUheHDpan8hb t6klxQRrNfz1UPKbPbVwSpvtMAnio2Vym9gtKPEyo p3tDRW7oKBrmRbdb5Z3uOOcTSLqqHWnRWWjYD4ufF VsKVFamK0kefacNTCmAgOxjbqeOUKafTodqpTeBu3 hrNnvCSZ2JRftW8plwT3wHbN0XKxwH6hzvH8zILw0 VIhdZKGsqCT6snL0HLPsdKMlB0LggK3iGISlRT4ye ab8w1aiWQW5COjgJYTyNbA0mmW7NDLzqACmVTCatY uyATbqv566MTJ2LeIhSAMri9VfC6YmcPwtV30pfVb qE94mUQLhoOhpoA1nyJqlwF6yDjDaJgMuKEdmiVco IY9wKTKzQ8glqEOxSVUqVLWoD3tpNhXciM1eoLdnU YfvkcGnFLPrOvv3SPUsbTAoVLAmEhg1BVMbCAGgV9 9forpyBYU0lM3ht2cyw0MbHMhwHWB7QJMih59gVNx rlaB4PNswEv3aOxCkDBQ9ZRzkSDM2kW== COMMENT (test code = 3359) d9hskGJhGWVjjIVkWhGrNZBuLYPvl9tsHOAgtVDm Z hHkUyHpFeEnCishcMTkYWOvXiCtu1hmh671jKIne4 vhARFlYlF5xXShTRVbuJRaD256UXByFXsov5kyv3C eFROvxSUti6S9VUAohyjswNk3hMduO85wf4W6Vezu S4pxABNvVGheLGDsXIplmZJwFYB8KNIeSRG9QPbig jYnmkK5BBbqzWCoYpQ3OUr1v2fteIgmNNKvQEK0l3 qiZXpncpNvVO6dyx8aaNr6r5sjinDrAJFhUEWsqSU GEVAtR5MnfWfkEp4nqOy1rWsrWkpnZLH2Cjp1SB5o xz42jup0aMmbEVWmsaheFfU9XNnxDTTwexzjAGd7E FxtYXJnbDcyMFxtYXJncjcyMFxtYXJndDcyMFxtYX ImZszsXEthGBPvJNS5CSqfq870WDX1ONtlc8jwa7d zhSNlOtb8EDZhPgMhGmqqOZkun6Bhb8agUUJfau7u VPZ0fPKkiAula1E7mAXfZQVyiWYsymQxFNIaKcD6M ZpcMS6wsk18RMVdHXE1uu3ncPYmySwvkiMkoHYqZZ hmK7LbNBZhf018CXFdM7AuHBPbw8D3znOvBhRoSLY irBA6niB2NNNeEYw2uLGbnpF9kyRneNXrH6siiK37 DmOvfXXqQ2CrwR11SmXcjFKqD0EbxN03WxYrbRXpU 6TbbL98DoGhuVOjBGGmlIUjZp0ikESbgZRdd1EsuD OlCEvxA75jr588OQKcyvMcO0kmvDGxuckdbHPsbbi yZQmgmtXlVXr1vlPuivaxzYdfqXOoaaxjHYelirGd JHWgJAhcIVPnVJFcLmDkU5CgoHifkcPav8wpvoRda HRlbnNpdmUgYmlsYXRlcmFsIGNhbmNlciBpbiBhbn JxzvgehpD1wgOad2t0vV0zQNpdxkBpRWZhWTGlASO lNKFbyBXwbKQnYJUjphEqmqEtwG3djHrdYJEgwvih iTUsCCulxz1gFU5bTOPbXBKrm0BqmLEejFAzTYAem 2V9CXQpGaApmFZgsoVzo21eqRYoLK94PAIec1KazJ KezpF9xEDdbynhoSEmGtE0FIjdJPresTgjD6hcHDM gx4VrkIouAXL9icrrP0ZlSW6mqusmrfYwXHKLaZNy kYgichBoiHPnb2LuesT9sJ2hQS9bAVQcIXSkAYHtg 1Tzw8S0gHJsUJS9vvOuHYUvtHAtpt73VHFxLgWnrQ JysMKdxO8leIebzyTpMxR0qDSmh5TkV9utDLwhc6P mX9riQA9eIATptrwfDSZ6 SYNOPTIC REPORT (test code = 71) PROSTATE GLAND: Radical Prostatect sindy (Prostate - All Specimens) 8th Edition - Protocol posted: 01/02/2019 : SPECIMEN Procedure: Radical prostatectomy Prostate Size: Prostate Weight (g): 89 g Prostate Greatest Dimension (Centimeters): 6.6 cm Additional Dimension (Centimeters): 4.2 cm Additional Dimension (Centimeters): 3.6 cm TUMOR Histologic Type: Acinar adenocarcinoma Histologic Grade: Grade Group and Elton Score: Grade group 2 (Elton Score 3 + 4 = 7) Percentage of Pattern 4: 30 % : Percentage of Pattern 4: 30 % Percentage of Pattern 5: 3 % Intraductal Carcinoma (IDC): Not identified Extraprostatic Extension (EPE): Present, focal Location of Extraprostatic Extension: Right anterior Urinary Bladder Neck Invasion: Not identified Seminal Vesicle Invasion: Not identified Treatment Effect: No known presurgical therapy Lymphovascular Invasion: Not Identified Perineural Invasion: Present MARGINS Margins: Uninvolved by invasive carcinoma LYMPH NODES Number of Lymph Nodes Involved: 0 Number of Lymph Nodes Examined: 12 PATHOLOGIC STAGE CLASSIFICATION (pTNM, AJCC 8th Edition) Primary Tumor (pT): pT3a Regional Lymph Nodes (pN): pN0 ADDITIONAL FINDINGS Additional Findings: High-grade prostatic intraepithelial neoplasia (PIN) Additional Findings: Nodular prostatic hyperplasia CPT Code(s) (test code = 3357) s3bydHAwCPLzhHNwVrYkVVDoRYGnc0scRLCv bGFuZ tHlVxMgCfYnRvgmyXErFBUdLqEpx1khv424iWDsz6 ajJOMsRlV6eQFyHPYgfLEaP554j4tme2cpgoEhlSP 6IYHiCMQ6RFkoqqLhyoY2QTtkdIOqJzV6FFfczyDu OAdfljAyxzQxItj6GRAgC759JEX0fRbgm2onALB2W BRkUEQzSwDmOa2laCVaC704KIOrPPYCSBEmfOu0HC XasiUckhNnwRSGa228I442t9bmGAMxoqGvvYgPhuv kv7mcA501CXEknUGivkEzBdWoNUUnyFOsuVC9DCOe SW6pcttaCmIaDH6lhkzkYvVzSJ3qeta9IsNvOG3ll wwkElCfNUcfHILccmomXBOnd3HuvfqiYP9qJ2Zpl9 I7sN8kwRApYILquDRwMlSiAJDlbo4dnOXqRHslt6H cWLB5nuG4zWQuzOTcZMQxPJ42Ignbe2ZfVcktINZ2 MGKvpjJpg9Woi5ojRbOfcxKsJ9zpE8PwMDKzUWIaI ERmMoSorsBfu4Ies3JtsBTmyJp3m5pgEVVzQNTznO szb9rdJDK1TNTnV6Q4iWQps3geLIbqCYAuxSG4mrc dMGoxISQvokV6rjbrEWwvHXLkzRR7ymecMCxyJMDs MvE6ldybNQnaNDDvPIM3PEonf875GPJ5GOrlIvpcN WdlXHBnbmNvbnRccGduZGVjXHBsYWluXHBsYWluXG OmAREgFtZelNimzOlwxZ0bNhOpFqPtKEraZV8dTIT bH6eauKNnBRJeNBXvV7xyJaAciI4gvXwvVBhxrtXz APi4OtI2REpjT7hlBQFhACnnGXeorBXipW== CLINICAL HISTORY (test code = 3356) p3npmORkAEFpgFLtGpIfDOReKBEte1g cZGVmbGFuZ fHqNcDgHpJjIwyufNKvLNTgMjRba1ufw328nFZxo4 hwOYHnUtK7wSIrWJWbgYTmZ931i6pih7fvgaEmbEU 9GBPwVQC6VCjnwjZpocZ3KNdwiFGnFqA5HSsrmeZy AIskvhZvukQuTqp1MCAxH542ADJ7aSaab4naDRD6E WVgASKaDfKoLn2ucBDmG673ZUJtICKRXYPdqMy9XT WpcpFrqtLltQOTe953V302y0nzUWOpuqFfmCsSrvs yy2osI588MRUfxLXpgmMkTgWqXPOnvEFowDU2BZYa JL5muqycPcXkDN7uxawpPaArVR8vmxd5DiEtSF3jd gxqHyWuEKuvANVmbpmrLPAhm6IkuyigQW3cZ9Nga1 L2fF2pzLBbGHZrdJLxTwLdEHXdjv7wkTVqFWewu9C oYWB6ovT8zZYbdSLeRAYzYV28Yssgc3LgRsotJFP2 XRGovmEtv4Dfb9poIhMqtqJiD3cbJ5BqNHGiCVXmW OIkQbZykyWir0Nxf0MfvCMewKj5o1dzGKPkCGPwhH dxb6qgBNV5ZCAiZ1J4tETtm6frZVvfGVSukIP1tpk gERxaKFVqmjJ7qimvPKlbDZOrqCF7ehagAWzhHMXz ZpB9ylpaDLthGAUjYQB6RRvqm923UTE0EQmkRyehE WdlXHBnbmNvbnRccGduZGVjXHBsYWluXHBsYWluXG SkMMXvZpZkjVzbfBjxdM7sOhJqTbZzADwvTS4wBEW fA1gcfHYiYSJeJRDuI8jyCzPbtD2yyOheYDarpqVf SSBkv0T6ETLjSOHpfzJesqgsTGD5 SPECIMEN SOURCE (test code = 3377) a1gexGRlPOZwcITyVqMpKIMgTBLkm6lc ZGVmbGFuZ yAeLsRfGmLwRakszFXtJWJeBdFac8jrx647cFGfk1 qpZNJyOcU3jERyXHLbjVSmB446h7tsd9ptonXldIG 5FZQuZTI8WYbmhoUhtsF4TGfslDXfRgV6IXxgttKi BRnczfFknbOaDio9LWAiG811IJL8lFald1cgPJF5K ICxZOCnMuFdBy4vyCIdQ584QXCbVLDDADRfzQa3HW LznzFyzqWqcRCLc342Y009l8voDGOsibRjaCvGvce jl6bkK854GHAnzYUmzpLyByNkAXPtvGClxGV2YIFt DD6wftamRcQuWK2olmccBjQhKO8cqxa8SbBiJV8bf wgjLjSxZZzrMNVgjhxyPHIdc0MmvqimFC0nZ4Jer7 H3nM9nbNMnKKPykVRtYaVqTSCnsu3kuKDyMLixf1A gKDI7xxO4cLXnuJWlFQOtXS80Qjfru2NhOiznFVR4 QQZsujLvh4Fwj5goNnSzpjQlR4fkF8FjZMCpFIXnQ ZAvPyKtkpDdt9Mag8TasFAnsMi6b8laRHBmGMZffG ndf6gsSIJ8LNCuJ8O6aWAja6tqLRbhSGSnuRQ5wtm wZJmnJXEhjbQ9aravOBvmXSAcfMP2amtcODtmMNJa EeD2lrycAEsxMMRiZRD6STojd219GHF8OCakMzzfL WdlXHBnbmNvbnRccGduZGVjXHBsYWluXHBsYWluXG XaQTRaBsTwvFuehVmwxH2lIcFsAfOaNZpaUG5fLNF xY0pvfNGxLHGdNZFnR0ooAwHqjI3srPhjPRvgraMm UVEpDNl5wKQrGC1hCTXwNVElWRi3sOYkVW8uZQTrG PLsIJt0sPJyGH3uFBAtRUNoMYYyx0W8IWPcCZgjDK J9 GROSS DESCRIPTION (test code = 3366) e1nmgROuQUHkaXYeHpWpWQQqVQB fb4lcSRRygFRwM mGbGxNuThHzZnyumMIvIZBlAeCwi6lwk260nNFki7 ieGLCwPyW5aMIqKSVwnAIzI290LWLmIKlez3ljv7I vHVVfhYEnt4Q3JAGBgzpbgOf6hVhqY33qm2Z8Gvqb A0klMXMgKBCcK9RcBD8sFAZhDvj8MMO4NAB6QGWyQ HRiZ6QcUH9fMTCluVNcKNi8c4fekFecRZOjYUH1b2 lcVRswijEaOI0eri0duSb0q8uqcgQeCXIwYKFhvQO YLTEmW8YwvUsuAr8ibQg5fDpeMyuhINO7Pbj0FO2t vf36fin5fOenTBKfvgncEjM8KQrqOIQeyijrVQa4X FxtYXJnbDcyMFxtYXJncjcyMFxtYXJndDcyMFxtYX RpWhonNLdwOFBqUJH3ZHogf408NEM3AGkih6ggl0e biTXwEhs3JGAoHeGsHsmlLIltr7Ani7sbUWXeps0d UXV5jDZyqCevc9A2oSOpKLYtaZWiecBpHNKvZxB0H SsuFA5pwu22WHUnZBH7fe8qeQNbhIaweiWzeGCyME doS4QuMWOpz589INQwU2HvVSPnt7Y1qyGmSvFcIYN mdIA2voV7ZMQiGPw2vNTtpmR1fuFfsQWbN5heyK12 HjKqdEKgF2VviT72NwWmoRNhQ2WupV12KbMsdIKlL 1HirJ89GbEvySRcRCRxyIAfNt6wrUIgmNZqi8NrbG VsLTmrG65ch014HPYcycDsJ9oskMEbomwmcOLsmsg uPEbstdE4KHKiIOQcXTniARFlQVLzXfNzcLNlChWz XfIjxAtgqWznRUmcYlFpVWMcNCylN2btCiMhCgLnU IDBRzXWFRQgjZFiXVVjbaUzt8KzFCzfiiXeNTWyyN BmLWfllNwtzKttKDAxbFnzziLzhqMuMQ6qFHQfE8Y vf7Kak95nfhMgZzWoDUWtEETsxCSzfFGap5X0TCAd AhEgxD9oxQStk0PagcGzeAVnDAJbGkadeVIgKoMaq MDkKrIzE89kWDpbxaVzRCSaLT4vRNMviz00FPyei9 igWvnbtt7zVBU0yPDpJSzul1PpSSSef7Z8QFgjy9c oQ5zseDHeFN82ySCpwKcfu2QgmTa3sKGxHVopVVJh LUEyLiBccGFyXHBhciBCLiBSZWNlaXZlZCBpbiBmb 3JtYWxpbiBsYWJlbGVkIHdpdGggdGhlIHBhdGllbn RsrvUpJJ2mRRFgF1Ocy0Yhi98cylArLfOfDNBxLMN ygBTusODmPSi5wAJegHuapRcbpv8yCCNaNAFtEJN5 lVFyGFAil6EegPKpNSK8JR5iqAkincSkbM1huGJyo 4KvhyO5aFJaPCZ3hDHkrGEpTHGbPrSycNahp1EvHJ WiMYQjgbUyW9ZoRgNmjRLoAdCrmV5vTs00RDAqIFh mEUqqQFZ0NHU6WCNvlEGbb4awma1rTNbySCKkHGAp qQLcCTodWLUzaLhgLPh8GWD0Pv0hrGWoYHIdyiEan 1aih7ahXijrGUYsbDPuCDBuJ1Yvb72hB70gEWpnLF BppaSQLR6WNt4nlsFquWbvsDemed2wWKjxEvgyQIL 6RCXxeJMiTECoWJB1STDgnnUqxWmemAldae0wRHlk MyzqZGQ7MXEjkROcWNC2GK0eQACrzC9qhORuf1HcF UMinVNzH6ZeZAjrVKMvYhFfufUxEAumVOWoLC4kCY KoDjFniBazx1GeDVyfZSUhhHXuPJEtlqQexIwvwW9 cZjBcZnMyNFxwbGFpblxmMVxmczIwXGxhbmcxMDMz [file] UaGUgcmlnaHQgaGFsZiBpcyBpbmtlZCBibGFjaywg WD7xTTScSXDaSHJ3QXowmDXxzGBjmV7jLJFyXtv1G M6zYDadKYCuKBLixWUcDLusUQAoslxjrXq6XYPjV0 Bjw31vHEWnbe8pIGJeTMyscC2eTsKaDYS3mcDaZZN gKDjqOXY7RE0ndImdvpcskXZ5LJGuE2Ijs1VzWCWu o8XqxWp6NDIlm10evSFbzKMat2VyDvTlEO2uLKdwH HVdWIGcoOApZUwaLHJylRntJZv8PNG7Vw5nxCIuPB KhadKqa0wmf1okNlcwRRXuyDPdVGQeI0Yka21nM99 lWPfxiSLzNBLtWXGaCGekeHFfS4uaMKVkUYSbORnw qBQyUSL5mZ3zZLXkOPNsjuIHRk9zuIOtXREzREYdh 3QhgUOtL0clSQDnFKWgNXpipBTqHDH3fO3zIJQtIK JwzvGKRb7OWYrtfZKiw7UjkEHbJZIzyUAuepGsLHe piSAfmFDviCA0OUPhVyRnyAJdvBR3WIDmZLDso7Qc eQAbYIQdPJ5lgPmwtJQaCH0ckaUmEDCuy4szsKYcC D6kNDDzsrCdESKjorVaihVkjUEvWTUqMI7jLEC3EZ NlbWluYWwgdmVzaWNsZSBhbmQgdmFzIGRlZmVyZW5 zIFxwYXIgUEEvZXcgXHBsYWluXGYwXGZzMjBcbGFu UkSwLkUpcJablFmrUUeyIlGiQNBnOExkU9slYyZdP nMyMFxwYXJ9 MICROSCOPIC DESCRIPTION (test code = o8dgcAVoUPTwrCJoUeSxHKRyCPC eg9oaAFVxiRAeW [facility]) nFyMuHoUuLuLfgnqUJhJRAdWhGoj2kzd609zGSgg4 zzAFCmKjF9cRGqBNAxhQQxR289i0lom2njigGbhSP 4MBKvENK2CGogveTkmaI1ICpodIVpFmJ1RObohuRy MQbasuDwziCeEee8GRXoD891UDX8vQium5ogKHO7D NRvEMYiRsAqUa6mkXZgH198UZXnOUXDCWLfvJn1HU LyjlOoqpLtrPPCt796S360z4ctNYFkdnIolKuPmfg zh7maF537YMUrdQUzgfZsXtQfZXSprNWzlND0SPEg TE2msijqGfXgZX0pjyxyYvHqKG0qylr7BbSeGP8fk firRbVwXAxgYWUyttfnIUVct5KqvgleFN8lW2Xyp3 F2dL0ypISzKZPjpMRoZhBmALJhud8oaAVnTXkpl2V dMSS8ezF3aBImpIMaWMMiZY32Nncsk3FhRaelINY5 KIYahhNyp5Snz0jjWqYinvMdP1gaF0PzUFEmLOXjF HVmVfWigdCej2Fst3FuwOMqpZr9n1slGJCnNJUmrO nwf9zrTFS6FVIqR8X8xTOog7gqCOaxXLNypIZ5wip jUEpeVMYomgN2etqcSOluNFVkdBI2ywqkEWtjSJQl UvA1nzkkRDsaDYXnYFV9DOxpq919OUM3NNzuSkqpG WdlXHBnbmNvbnRccGduZGVjXHBsYWluXHBsYWluXG XlDTFdPiHlxYqbcUttoS4uBlVhTbXxTAwlVW1yDNH fR5zhuQGcYWFnKDLeS9kiCsNduZ0mzFgzNWwnbrPa VDRxhpOwqi4iFK2hbSCijB== [facility] Center[facility] [id number] 16:00:00Surgical Pathology Report Case: [id number] Authorizing Provider: Sami Garcia MD Collected: 12/12/2019 0936 Ordering Location: [facility] Received: 12/13/2019 0832 SERVICES Pathologist: Sim Arrington MD Specimens: A) -Lymph Node, CHASE PROSTATIC LYMPH NODES B) - Lymph Node, Left pelvic lymph nodes C) - Lymph Node, Right pelvic lymph nodes D) - Prostate A. LYMPH NODES, PERIPROSTATIC, DISSECTION - THREE BENIGN LYMPH NODES (0/3) B. LYMPH NODES, LEFT PELVIC, DISSECTION - FOUR BENIGN LYMPH NODES (0/4) C. LYMPH NODES, RIGHT PELVIC, DISSECTION - FIVE BENIGN LYMPH NODES (0/5)D. PROSTATE, ROBOTIC-ASSISTED RADICAL PROSTATECTOMY: - ADENOCARCINOMA, ELTON 3+4=7, FOCAL EXTRAPROSTATICEXTENSION, SURGICAL MARGINS NEGATIVE SEMINAL VESICLES, ROBOTIC-ASSISTED RADICAL PROSTATECTOMY: - NO PATHOLOGIC DIAGNOSIS Signing Pathologist Direct Phone Line: [phone] by Sim Arrington MD on 12/26/2019 at 4:00 PMPreliminary result electronically signed by Sim Arrington MD on 12/19/2019 at 1:54 PMSections show extensive bilateral cancer inanterior transition zone. There are smaller cancers in the peripheral zone. The focal extraprostatic extension is anteriorly on the right but is well clear of the surgical margins. Excellent preservation of the neurovascular bundles is noted from examination of the surgical specimen.PROSTATE GLAND: Radical Prostatectomy (Prostate - All Specimens)8th Edition - Protocol posted: 01/02/2019 : SPECIMEN Procedure: Radical prostatectomy Prostate Size: Prostate Weight (g): 89 g Prostate Greatest Dimension (Centimeters): 6.6 cm Additional Dimension (Centimeters): 4.2 cm Additional Dimension (Centimeters): 3.6 cmTUMOR Histologic Type: Acinar adenocarcinoma Histologic Grade: Grade Group and Winner Score: Grade group 2 (Winner Score 3 + 4 = 7) Percentage of Pattern 4: 30 % : Percentage of Pattern 4: 30 % Percentage of Pattern 5: 3 % Intraductal Carcinoma (IDC): Not identified Extraprostatic Extension (EPE): Present, focal Location of Extraprostatic Extension: Right anterior Urinary Bladder Neck Invasion: Not identified Seminal Vesicle Invasion: Not identified Treatment Effect: No known presurgical therapy Lymphovascular Invasion: Not Identified Perineural Invasion: Present MARGINS Margins: Uninvolved by invasive carcinoma LYMPH NODES Number of Lymph Nodes Involved: 0Number of Lymph Nodes Examined: 12 PATHOLOGIC STAGE CLASSIFICATION (pTNM, AJCC 8th Edition) Primary Tumor (pT): pT3a Regional Lymph Nodes (pN): pN0 ADDITIONAL FINDINGS Additional Findings:High-grade prostatic intraepithelial neoplasia (PIN) Additional Findings: Nodular prostatic hyperplasia [id number] X [id number] cancerA. Lymph node. B. Lymph node. C. Lymph node. D. Prostate A. Received in formalin labeled with the patient's name, accession number and "periprostatic lymph nodes" fritz 3.9 x 2.5 x 0.3 cm aggregate of vergara-yellow fibrofatty adipose tissue, which is entirely submitted in A1-A2. B. Received in formalin labeled with the patient's name, accession number and "left pelvic lymph nodes" are three possible vergara-pink lymph nodes with attached soft tissue that range from 1.0 to2.7 cm in greatest dimension. The specimen is entirely submitted as follows:Section code: B1-B2-one lymph node, bisectedB3-B4, one lymph node, bisectedB5-one lymph node, bisectedB6-remainder of soft tissue C. Received in formalin labeled with the patient's name, accession number and "right pelvic lymph nodes" is a 5.8 x 3.4 x 1.0 cm portion of vergara-yellow fibrofatty adipose tissue containing three vergara-pink lymph nodes that range from 0.7 to 2.3 cm in greatest dimension. The specimen is entirely submitted as follows:Section code: C1-one lymph node, bisectedC2-one lymph node, bisectedC3-one lymph node, qxecbiyuS8-W2-skmdxglpg of soft tissueD. Received in formalin labeled with the patient's name, accession number and "prostate" is an 89 gm total prostatectomy specimen, which consists of an 80.3 gm, 6.6 (transverse) x 4.2 (apex-base) x 3.6 (anterior-posterior) cm prostate, a 2.5 x 1.2 x 0.5 cm right seminal vesicle, a 2.5 x 1.3 x 0.4 cm left seminal vesicle, a 3.5 cm in length x 0.3 cm in diameter right vas deferens, and a 2.4 cm in length x 0.3 cm in diameter left vas deferens. The right half is inked black, and the left half is inked blue. The specimen is serially sectioned from apex to base to reveal a vergara-pink, heterogenous, focally spongy cut surface. The specimen is entirely submitted as follows:Section code:D1-apex margin, radially sectioned D2-bladder base margin, radially sectioned Q6-I41-bnxllnaf, sequentially submitted from apex to baseD19- right seminal vesicle and vas deferens A55-hpvh seminal vesicle and vas deferens PA/ew Performed.POC-Glucose [id number] 12:42:00 Test Item Value Reference Range Interpretation Comments POC-Glucose Meter (test 162 mg/dL 70-110 H : TE STED AT [facility] code = 1538) 9985 [facility], 770 30: Brine Tank Separator Operator/Techni manish ID = [id number] for ASTON VANEGAS Lab Interpretation (test Abnormal code = 55361-0) [facility] [id number] 12:42:00 Test Item Value Reference Range Interpretation Comments POC-GLUCOSE METER 162 mg/dL 70-110 H : TESTED A T [facility] 6720 (BEAKER) (test code = GORDO [place] [facility], 1538) [address]: Brine Tank Separator Operator/Techni manish ID = [id number] for DA RAMU, FENGAIRA POCT-GLUCOSE [id number] 11:27:00 Test Item Value Reference Range Interpretation Comments POC-GLUCOSE METER 143 mg/dL 70-110 H : TESTED A T [facility] 6720 (BEAKER) (test code = GORDO [place] [facility], 1538) [address]: Brine Tank Separator Operator/Techni manish ID = [id number] for DA RAMU, KEYAIRA Basic Metabolic Panel - In [id number] 07:53:00 Test Item Value Reference Range Interpretation Comments Sodium (test code = 136 meq/L 140-696 8313-2) Potassium (test code = 3.8 meq/L 3.5-5.1 2823-3) Chloride (test code = 105 meq/L 98-107 2075-0) CO2 (test code = 25 meq/L 22-29 2028-9) BUN (test code = 14 mg/dL 7-21 3094-0) Creatinine (test code 0.91 mg/dL 0.57-1.25 = 2160-0) Glucose (test code = 131 mg/dL 70-105 H 2345-7) Calcium (test code = 8.2 mg/dL 8.4-10.2 L 62583-3) EGFR (test code = 84 mL/min/1.73 [place] [address]-2) NOT ACCURATE CREATININE CLEARANCE IN PREDICTING GLOMERULAR FILTRATION RATE . ESTIMATED GFR I S NOT APPLICABLE FOR DIALYSIS PATIENTS. JEFF (test code = JEFF) Brine Tank Separator Operator ID - [id number] L Lab Interpretation Abnormal (test code = 38007-6) [facility] METABOLIC [id number] 07:53:00 Test Item Value Reference Range Interpretation Comments SODIUM (BEAKER) 136 meq/L 136-145 (test code = 381) POTASSIUM (BEAKER) 3.8 meq/L 3.5-5.1 (test code = 379) CHLORIDE (BEAKER) 105 meq/L 98-107 (test code = 382) CO2 (BEAKER) (test 25 meq/L 22-29 code = 355) BLOOD UREA NITROGEN 14 mg/dL 7-21 (BEAKER) (test code = 354) CREATININE (BEAKER) 0.91 mg/dL 0.57-1.25 (test code = 358) GLUCOSE RANDOM 131 mg/dL 70-105 H (BEAKER) (test code = 652) CALCIUM (BEAKER) 8.2 mg/dL 8.4-10.2 L (test code = 697) EGFR (BEAKER) (test 84 mL/min/1.73 ESTIMA ZONIA GFR IS code = 1092) sq m NOT ACCURATE CREATININE CLEARANCE IN PREDICTING GLOMERULAR FILTRATION RATE . ESTIMATED GFR I S NOT APPLICABLE FOR DIALYSIS PATIEN TS. Brine Tank Separator Operator ID - [id number] LCBC with platelet count + automated [id number] 05:52:00 Test Item Value Reference Range Interpretation Comments WBC (test code = 6690-2) 10.1 3.5- 10.5 K/L RBC (test code = 789-8) 4.07 4.63- 6.08 M/L L MCHC (test code = 786-4) 32.3 32.3- 36.5 GM/DL L Hematocrit (test code = 4544-3) 34.4 % 40.1-51 L MCV (test code = 787-2) 84.5 fL 79-92.2 MCH (test code = 785-6) 27.3 pg 25.7-32.2 RDW (test code = 788-0) 13.5 % 11.6-14.4 Platelets (test code = 777-3) 167 150- 450 K/CU MM MPV (test code = 96159-5) 10.5 fL 9.4-12.4 nRBC (test code = 413) 0 0- 0 /100 WBC % Neutros (test code = 429) 75 % % Lymphs (test code = 430) 15 % % Monos (test code = 431) 8 % % Eos (test code = 432) 1 % % Baso (test code = 437) 0 % # Neutros (test code = 670) 7.58 1.78- 5.38 K/L H # Lymphs (test code = 414) 1.54 1.32- 3.57 K/L # Monos (test code = 415) 0.84 0.30- 0.82 K/L H # Eos (test code = 416) 0.09 0.04- 0.54 K/L # Baso (test code = 417) 0.04 0.01- 0.08 K/L Immature Granulocytes-Relative 0 % 0-1 (test code = 2801) Lab Interpretation (test code = Abnormal 48795-8) [facility] W/PLT COUNT & AUTO [id number] 05:52:00 Test Item Value Reference Range Interpretation Comments WHITE BLOOD CELL COUNT (BEAKER) 10.1 K/ L 3.5-10.5 (test code = 775) RED BLOOD CELL COUNT (BEAKER) 4.07 M/ L 4.63-6.08 L (test code = 761) HEMOGLOBIN (BEAKER) (test code = 11.1 GM/DL 13.7-17.5 L 410) HEMATOCRIT (BEAKER) (test code = 34.4 % 40.1-51.0 L 411) MEAN CORPUSCULAR VOLUME (BEAKER) 84.5 fL 79.0-92.2 (test code = 753) MEAN CORPUSCULAR HEMOGLOBIN 27.3 pg 25.7-32.2 (BEAKER) (test code = 751) MEAN CORPUSCULAR HEMOGLOBIN CONC 32.3 GM/DL 32.3-36.5 (BEAKER) (test code = 752) RED CELL DISTRIBUTION WIDTH 13.5 % 11.6-14.4 (BEAKER) (test code = 412) PLATELET COUNT (BEAKER) (test 167 K/CU MM 150-450 code = 756) MEAN PLATELET VOLUME (BEAKER) 10.5 fL 9.4-12.4 (test code = 754) NUCLEATED RED BLOOD CELLS 0 /100 WBC 0-0 (BEAKER) (test code = 413) NEUTROPHILS RELATIVE PERCENT 75 % (BEAKER) (test code = 429) LYMPHOCYTES RELATIVE PERCENT 15 % (BEAKER) (test code = 430) MONOCYTES RELATIVE PERCENT 8 % (BEAKER) (test code = 431) EOSINOPHILS RELATIVE PERCENT 1 % (BEAKER) (test code = 432) BASOPHILS RELATIVE PERCENT 0 % (BEAKER) (test code = 437) NEUTROPHILS ABSOLUTE COUNT 7.58 K/ L 1.78-5.38 H (BEAKER) (test code = 670) LYMPHOCYTES ABSOLUTE COUNT 1.54 K/ L 1.32-3.57 (BEAKER) (test code = 414) MONOCYTES ABSOLUTE COUNT (BEAKER) 0.84 K/ L 0.30-0.82 H (test code = 415) EOSINOPHILS ABSOLUTE COUNT 0.09 K/ L 0.04-0.54 (BEAKER) (test code = 416) BASOPHILS ABSOLUTE COUNT (BEAKER) 0.04 K/ L 0.01-0.08 (test code = 417) IMMATURE GRANULOCYTES-RELATIVE 0 % 0-1 PERCENT (BEAKER) (test code = 2801) POCT-GLUCOSE [id number] 22:52:00 Test Item Value Reference Range Interpretation Comments POC-GLUCOSE METER 164 mg/dL 70-110 H : TESTED A T [facility] 6720 (BEAKER) (test code = [facility], 1538) [address]: Brine Tank Separator Operator/Techni manish ID = [id number] for IMELDA LINDO POCT-GLUCOSE [id number] 18:12:00 Test Item Value Reference Range Interpretation Comments POC-GLUCOSE METER 127 mg/dL 70-110 H : TESTED A T [facility] 6720 (BEAKER) (test code = [facility], 1538) [address]: Brine Tank Separator Operator/Techni manish ID = [id number] for AMAURI STEWART, KAPIL POCT-GLUCOSE [id number] 11:57:00 Test Item Value Reference Range Interpretation Comments POC-GLUCOSE METER 132 mg/dL 70-110 H : TESTED A T [facility] 6720 (BEAKER) (test code = [facility], 1538) [address]: Brine Tank Separator Operator/Techni manish ID = [id number] for AMAURI OMPDARREN, KAPIL POCT-GLUCOSE [id number] 08:54:00 Test Item Value Reference Range Interpretation Comments POC-GLUCOSE METER 169 mg/dL 70-110 H : TESTED A T [facility] 6720 (BEAKER) (test code = [facility], 1538) [address]: Brine Tank Separator Operator/Techni manish ID = [id number] for TH OMPSON, KAPIL CBC W/PLT COUNT & AUTO [id number] 06:22:00 Test Item Value Reference Range Interpretation Comments WHITE BLOOD CELL COUNT (BEAKER) 11.6 K/ L 3.5-10.5 H (test code = 775) RED BLOOD CELL COUNT (BEAKER) 4.18 M/ L 4.63-6.08 L (test code = 761) HEMOGLOBIN (BEAKER) (test code = 11.6 GM/DL 13.7-17.5 L 410) HEMATOCRIT (BEAKER) (test code = 34.9 % 40.1-51.0 L 411) MEAN CORPUSCULAR VOLUME (BEAKER) 83.5 fL 79.0-92.2 (test code = 753) MEAN CORPUSCULAR HEMOGLOBIN 27.8 pg 25.7-32.2 (BEAKER) (test code = 751) MEAN CORPUSCULAR HEMOGLOBIN CONC 33.2 GM/DL 32.3-36.5 (BEAKER) (test code = 752) RED CELL DISTRIBUTION WIDTH 13.5 % 11.6-14.4 (BEAKER) (test code = 412) PLATELET COUNT (BEAKER) (test 205 K/CU MM 150-450 code = 756) MEAN PLATELET VOLUME (BEAKER) 10.7 fL 9.4-12.4 (test code = 754) NUCLEATED RED BLOOD CELLS 0 /100 WBC 0-0 (BEAKER) (test code = 413) NEUTROPHILS RELATIVE PERCENT 69 % (BEAKER) (test code = 429) LYMPHOCYTES RELATIVE PERCENT 21 % (BEAKER) (test code = 430) MONOCYTES RELATIVE PERCENT 9 % (BEAKER) (test code = 431) EOSINOPHILS RELATIVE PERCENT 0 % (BEAKER) (test code = 432) BASOPHILS RELATIVE PERCENT 0 % (BEAKER) (test code = 437) NEUTROPHILS ABSOLUTE COUNT 8.02 K/ L 1.78-5.38 H (BEAKER) (test code = 670) LYMPHOCYTES ABSOLUTE COUNT 2.41 K/ L 1.32-3.57 (BEAKER) (test code = 414) MONOCYTES ABSOLUTE COUNT (BEAKER) 1.08 K/ L 0.30-0.82 H (test code = 415) EOSINOPHILS ABSOLUTE COUNT 0.01 K/ L 0.04-0.54 L (BEAKER) (test code = 416) BASOPHILS ABSOLUTE COUNT (BEAKER) 0.02 K/ L 0.01-0.08 (test code = 417) IMMATURE GRANULOCYTES-RELATIVE 0 % 0-1 PERCENT (BEAKER) (test code = 2801) BASIC METABOLIC [id number] 06:06:00 Test Item Value Reference Range Interpretation Comments SODIUM (BEAKER) 141 meq/L 136-145 (test code = 381) POTASSIUM (BEAKER) 3.7 meq/L 3.5-5.1 (test code = 379) CHLORIDE (BEAKER) 108 meq/L 98-107 H (test code = 382) CO2 (BEAKER) (test 24 meq/L 22-29 code = 355) BLOOD UREA NITROGEN 13 mg/dL 7-21 (BEAKER) (test code = 354) CREATININE (BEAKER) 0.86 mg/dL 0.57-1.25 (test code = 358) GLUCOSE RANDOM 120 mg/dL 70-105 H (BEAKER) (test code = 652) CALCIUM (BEAKER) 8.5 mg/dL 8.4-10.2 (test code = 697) EGFR (BEAKER) (test 90 mL/min/1.73 ESTIMA ZONIA GFR IS code = 1092) sq m NOT ACCURATE CREATININE CLEARANCE IN PREDICTING GLOMERULAR FILTRATION RATE . ESTIMATED GFR I S NOT APPLICABLE FOR DIALYSIS PATIEN TS. Brine Tank Separator Operator ID - ELLIS MPOCT-GLUCOSE [id number] 21:13:00 Test Item Value Reference Range Interpretation Comments POC-GLUCOSE METER 190 mg/dL 70-110 H : [facility] ([facility] (test code = GORDO [place] [facility], 1538) [address]: Brine Tank Separator Operator/Techni manish ID = [id number] for ZAK MICHELLE ERIC BASIC METABOLIC [id number] 14:43:00 Test Item Value Reference Range Interpretation Comments SODIUM (BEAKER) 140 meq/L 136-145 (test code = 381) POTASSIUM (BEAKER) 4.0 meq/L 3.5-5.1 Specimen moderately (test code = 379) hemolyzed CHLORIDE (BEAKER) 108 meq/L 98-107 H (test code = 382) CO2 (BEAKER) (test 19 meq/L 22-29 L code = 355) BLOOD UREA NITROGEN 16 mg/dL 7-21 (BEAKER) (test code = 354) CREATININE (BEAKER) 0.98 mg/dL 0.57-1.25 Specimen moderately (test code = 358) hemolyzed GLUCOSE RANDOM 231 mg/dL 70-105 H (BEAKER) (test code = 652) CALCIUM (BEAKER) 8.2 mg/dL 8.4-10.2 L (test code = 697) EGFR (BEAKER) (test 77 mL/min/1.73 ESTIMA ZONIA GFR IS code = 1092) sq m NOT ACCURATE CREATININE CLEARANCE IN PREDICTING GLOMERULAR FILTRATION RATE . ESTIMATED GFR I S NOT APPLICABLE FOR DIALYSIS PATIEN TS. Brine Tank Separator Operator ID - LMPOCT-GLUCOSE [id number] 14:37:00 Test Item Value Reference Range Interpretation Comments POC-GLUCOSE METER 214 mg/dL 70-110 H : Notified RN/MD: (BEAKER) (test code = TESTED AT [facility] 6720 1538) [facility], [address]: Brine Tank Separator Operator/Techni manish ID = [id number] for AFTMATA CHOPRA Hemoglobin and [id number] 14:26:00 Test Item Value Reference Range Interpretation Comments Hemoglobin (test code = 11.9 13.7- 17.5 GM/DL L 786-4) Hematocrit (test code = 36.7 % 40.1-51 L 4544-3) JEFF (test code = JEFF) Brine Tank Separator Operator ID - [id number] Lab Interpretation (test Abnormal code = 08262-7) [facility]MO[facility] AND [id number] 14:26:00 Test Item Value Reference Range Interpretation Comments HEMOGLOBIN (BEAKER) (test code = 11.9 GM/DL 13.7-17.5 L 410) HEMATOCRIT (BEAKER) (test code = 36.7 % 40.1-51.0 L 411) Brine Tank Separator Operator ID - [id number], [id number] 09:05:00 Test Item Value Reference Range Interpretation Comments ABO Grouping (test code = 2588) O Rh Factor (test code = 2589) POS [facility] CenterType and screen, [id number] 08:01:00 Test Item Value Reference Range Interpretation Comments ABO/RH AUTOMATED (AKER) (test O POSITIVE code = 2260) Ab Scrn (test code = 890-4) NEGATIVE [facility] CenterPO[facility] [id number] 06:58:00 Test Item Value Reference Range Interpretation Comments POC-GLUCOSE METER 154 mg/dL 70-110 H : TESTED A T [facility] 6720 (BEAKER) (test code = CITLALLIKLAUDIA [place] [facility], 1538) [address]: Brine Tank Separator Operator/Techni manish ID = [id number] for PL AIR, LIDIA MR, PELVIS, WITHOUT / WITH IV [id number] 13:06:00FINAL REPORT TECHNIQUE: MRI of the prostate WITHOUT and WITH intravenous contr ast. INDICATION: PROSTATE CANCER. COMPARISON: None. FINDINGS: PROSTATE: The prostate is enlarged measuring 5.5 x 5.6 x 6.1 cm (96.7 cc). A indistinct noncircumcised, homogeneously hypointense 2.8 x 1.5 x 4.2 cm lesion centered along the anterior aspect of the transitional zone (series 4, image 16 andseries 5, image 11). This lesion does demonstrate restricted diffusion (series 9, image 35) and prompt arterial phase enhancement. No disruption of the prostatic capsule. Multiple heterogeneously enhancing, predominantly T2 hyperintense nodules and the transitional zone compatible with benign prostatic hypertrophy nodules. No focal T2 signal abnormalities in the peripheral zone. SEMINAL VESICLES: Unremarkable. LYMPH NODES: No pelvic lymphadenopathy. BLADDER: Unremarkable. RECTUM: Unremarkable. PERITONEUM/RETROPERITONEUM: No free fluid. BONES AND SOFT TISSUES: Unremarkable. IMPRESSION:1.Highly suspicious 4 cm indistinct mass in the anterior transitional zone as above (PI-RADS 5). No evidence of local regional invasion. 2.Moderately enlarged prostate with multiple BPH nodules. Signed: Sherif Bell MDReport Verified Date/Time: 07/12/2019 13:06:34 Reading Location: [address] MR pelvis without & with IV [id number] 13:06:00Interface, External Ris In - 07/12/2019 1:08 PM CDTFINAL REPORT TECHNIQUE: MRI of the prostate WITHOUT and WITH intravenous contrast. INDICATION: PROSTATE CANCER. COMPARISON: None. FINDINGS: PROSTATE: The prostate is enlarged measuring 5.5 x 5.6 x 6.1 cm (96.7 cc). A indistinct noncircumcised, homogeneously hypointense 2.8 x 1.5 x 4.2 cm lesion centered along the anterior aspect of the transitional zone (series 4, image 16 and series 5, image 11). This lesion does demonstrate restricted diffusion (series 9, image 35) and prompt arterial phase enhancement. No disruption of the prostatic capsule. Multiple heterogeneously enhancing, predominantly T2 hyperintense nodules and the transitional zone compatible with benign prostatic hypertrophy nodules. No focal T2 signal abnormalities in the peripheral zone. SEMINAL VESICLES: Unremarkable. LYMPH NODES: No pelvic lymphadenopathy. BLADDER: Unremarkable. RECTUM: Unremarkable. PERITONEUM/RETROPERITONEUM: No free fluid. BONES AND SOFT TISSUES: Unremarkable. IMPRESSION:1.Highly suspicious 4 cm indistinct mass in the anterior transi tional zone as above (PI-RADS 5). No evidence of local regional invasion. 2.Moderately enlarged prostate with multiple BPH nodules. Signed: Sherif Bell MDReport Verified Date/Time: 07/12/2019 13:06:34 Reading Location: [address] [facility]-[id number] 08:52:00 Test Item Value Reference Range Interpretation Comments POC-Creatinine (test 0.9 mg/dL 0.6-1.3 TESTED AT [place] [address] code = 1859) [facility] 770 0 POC-EGFR (test code 85 mL/min/1.73M2 = 1860) [facility]-[id number] 08:52:00 Test Item Value Reference Range Interpretation Comments POC-CREATININE 0.9 mg/dL 0.6-1.3 TESTED AT [facility] 7200 ([facility]) (test [facility] G A code = 1859) [facility] 7703 0 POC-EGFR 85 mL/min/1.73M2 ([facility]) (test code = 1860)
[2020-05-11] MEDS ORDERED: ACETAMINOPHEN 500 MG TAB ONE (15:53)
--- NOTE | 2020-05-11 16:08 | EDPHYS ---
Physician Documentation [facility] Name: Issa Escalera Age: 64 yrs Sex: Male : 1955 Arrival Date: 05/11/2020 Time: 11:41 Bed 18 Private MD: Olu Kennedy R ED Physician Christo Hearn HPI: 05/11 12:36 This 64 yrs old Male presents to ER via Ambulatory with complaints of Cough, pm1 Fever. 12:36 The patient or guardian reports cough, with no sputum. Onset: The symptoms/episode pm1 began/occurred 1 week(s) ago. Severity of symptoms: in the emergency department the symptoms are unchanged. Modifying factors: The symptoms are alleviated by Tylenol, the symptoms are aggravated by nothing. Associated signs and symptoms: Pertinent positives: fever, Pertinent negatives: chest pain, ear ache, nausea, sore throat, vomiting. The patient has not experienced similar symptoms in the past. The patient has not recently seen a physician. Historical: - Allergies: 12:44 No Known Allergies; bp - Home Meds: 12:44 atorvastatin 40 mg Oral tab 1 tab once daily [Active]; ezetimibe Oral [Active]; bp Fioricet 50-325-40 mg Oral tab 1 tab daily [Active]; glimepiride 2 mg Oral tab 1 tab twice a day [Active]; telmisartan-hydrochlorothiazid 80-12.5 mg Oral tab 1 tab once daily [Active]; Lyrica Oral [Active]; - PMHx: 12:44 Diabetes - NIDDM; High Cholesterol; Hypertension; Migraines; bp - Immunization history:: Adult Immunizations unknown. - Social history:: Smoking status: Patient denies any tobacco usage or history of. ROS: 12:36 Eyes: Negative for injury, pain, redness, and discharge, ENT: Negative for injury, pm1 pain, and discharge, Neck: Negative for injury, pain, and swelling, Cardiovascular: Negative for chest pain, palpitations, and edema. 12:36 Abdomen/GI: Negative for abdominal pain, nausea, vomiting, diarrhea, and constipation, Back: Negative for injury and pain, MS/Extremity: Negative for injury and deformity, Skin: Negative for injury, rash, and discoloration, Neuro: Negative for headache, weakness, numbness, tingling, and seizure. 12:36 Constitutional: Positive for fever, Negative for body aches. 12:36 Respiratory: Positive for cough, Negative for shortness of breath, sputum production, wheezing. Exam: 12:36 Constitutional: This is a well developed, well nourished patient who is awake, alert, pm1 and in no acute distress. Head/Face: Normocephalic, atraumatic. Neck: Trachea midline, no thyromegaly or masses palpated, and no cervical lymphadenopathy. Supple, full range of motion without nuchal rigidity, or vertebral point tenderness. No Meningismus. Chest/axilla: Normal chest wall appearance and motion. Nontender with no deformity. No lesions are appreciated. Cardiovascular: Regular rate and rhythm with a normal S1 and S2. No gallops, murmurs, or rubs. Normal PMI, no JVD. No pulse deficits. 12:36 Abdomen/GI: Soft, non-tender, with normal bowel sounds. No distension or tympany. No guarding or rebound. No evidence of tenderness throughout. Back: No spinal tenderness. No costovertebral tenderness. Full range of motion. Skin: Warm, dry with normal turgor. Normal color with no rashes, no lesions, and no evidence of cellulitis. MS/ Extremity: Pulses equal, no cyanosis. Neurovascular intact. Full, normal range of motion. 12:36 Respiratory: Exam negative for acute changes, respiratory distress, shortness of breath, wheezing. 12:36 Neuro: Exam negative for acute changes, Orientation: is normal, Mentation: is normal, Motor: is normal, moves all fours, Gait: is steady, at a normal pace, without difficulty. Vital Signs: 12:39 BP 140 / 69; Pulse 82; Resp 17; Temp 99.9; Pulse Ox 93% ; bp 14:19 BP 130 / 60; Pulse 86; Resp 16; Pulse Ox 95% ; bp 15:58 BP 140 / 70; Pulse 75; Resp 16; Pulse Ox 95% ; bp 16:58 BP 129 / 75; Pulse 66; Resp 17; Temp 98.5; Pulse Ox 95% ; bp MDM: 12:15 Patient medically screened. pm1 13:16 Data reviewed: vital signs. pm1 16:06 Data interpreted: Pulse oximetry: on room air is 95 %. Interpretation: normal. pm1 Counseling: I had a detailed discussion with the patient and/or guardian regarding: the historical points, exam findings, and any diagnostic results supporting the discharge/admit diagnosis, lab results, radiology results, the need for outpatient follow up, to return to the emergency department if symptoms worsen or persist or if there are any questions or concerns that arise at home. 05/11 12:35 Order name: COVID-19 pm1 05/11 12:35 Order name: Flu; Complete Time: 16:06 pm1 05/11 12:35 Order name: CXR XRAY; Complete Time: 13:35 pm1 05/11 12:35 Order name: Strep; Complete Time: 15:29 pm1 05/11 15:17 Order name: Throat Culture EDMS 05/11 12:35 Order name: Droplet/Contact Precautions; Complete Time: 12:46 pm1 05/11 12:35 Order name: Labs collected and sent; Complete Time: 12:46 pm1 05/11 12:35 Order name: O2 Per Protocol; Complete Time: 12:46 pm1 Administered Medications: 15:46 Drug: Tylenol 1000 mg Route: PO; bp 16:58 Follow up: Response: Pain is decreased bp 16:30 Drug: Rocephin (cefTRIAXone) 1 grams Route: IM; Site: right gluteus; bp 16:58 Follow up: Response: No adverse reaction bp Disposition: 20:56 Co-signature as Attending Physician, Christo Hearn MD I agree with the assessment and george plan of care. Disposition: 05/11/20 16:07 Discharged to Home. Impression: Acute upper respiratory infection, unspecified. - Condition is Stable. - Discharge Instructions: Upper Respiratory Infection, Adult. - Prescriptions for Tessalon Perles 100 mg Oral Capsule - take 1 capsule by ORAL route every 8 hours As needed; 15 capsule. Zithromax Z- César 250 mg Oral Tablet - take 1 tablet by ORAL route as directed for 5 days Day 1 - take two (2) tablets one time. Day 2, 3, 4 , 5 take one (1) tablet once daily.; 6 tablet. - Medication Reconciliation Form, Thank You Letter, Antibiotic Education, Prescription Opioid Use form. - Follow up: Emergency Department; When: As needed; Reason: Worsening of condition. Follow up: Private Physician; When: 2 - 3 days; Reason: Recheck today's complaints, Continuance of care, Re-evaluation by your physician. - Problem is new. - Symptoms have improved. Signatures: Dispatcher [employer] EDMS Christo Hearn, Chino Banuelos MD, cha, PLANNING SUPERVISOR PLANNING SUPERVISOR pm1 Sachin Rankin, RN RN bp Corrections: (The following items were deleted from the chart) 17:00 16:07 05/11/2020 16:07 Discharged to Home. Impression: Acute upper respiratory bp infection, unspecified. Condition is Stable. Forms are Medication Reconciliation Form, Thank You Letter, Antibiotic Education, Prescription Opioid Use. Follow up: Emergency Department; When: As needed; Reason: Worsening of condition. Follow up: Private Physician; When: 2 - 3 days; Reason: Recheck today's complaints, Continuance of care, Re-evaluation by your physician. Problem is new. Symptoms have improved. pm1
--- NOTE | 2020-05-11 16:08 | ER ---
Nurse's Notes [facility] Name: Issa Escalera Age: 64 yrs Sex: Male : 1955 Arrival Date: 05/11/2020 Time: 11:41 Bed 18 Private MD: Olu Kennedy R Diagnosis: Acute upper respiratory infection, unspecified Presentation: 05/11 12:39 Chief complaint: Patient states: COUGH AND FEVER x1 WK. Coronavirus screen: Surgical bp mask placed on patient. Patient moved to private room, placed in contact and droplet isolation with eye protection until further assessment. Patient reports a cough. Patient reports shortness of breath or difficulty breathing. Patient reports a measured and/or subjective temperature greater than 100.4F. Patient denies travel on a cruise ship or to a country the [facility] currently lists as an affected area. Patient denies contact with known and/or suspected case of COVID-19. Ebola Screen: No symptoms or risks identified at this time. Initial Sepsis Screen: Does the patient meet any 2 criteria? No. Patient's initial sepsis screen is negative. Does the patient have a suspected source of infection? No. Patient's initial sepsis screen is negative. Risk Assessment: Do you want to hurt yourself or someone else? Patient reports no desire to harm self or others. Onset of symptoms is unknown. 12:39 Method Of Arrival: Ambulatory bp 12:39 Acuity: MADELINE 3 bp Triage Assessment: 12:40 General: Appears in no apparent distress. comfortable, Behavior is cooperative, bp appropriate for age, anxious. Pain: Denies pain. EENT: No deficits noted. Neuro: No deficits noted. Cardiovascular: No deficits noted. Respiratory: Reports shortness of breath cough that is. GI: No signs and/or symptoms were reported involving the gastrointestinal system. : No signs and/or symptoms were reported regarding the genitourinary system. Derm: No deficits noted. Musculoskeletal: No deficits noted. Historical: - Allergies: 12:44 No Known Allergies; bp - Home Meds: 12:44 atorvastatin 40 mg Oral tab 1 tab once daily [Active]; ezetimibe Oral [Active]; bp Fioricet 50-325-40 mg Oral tab 1 tab daily [Active]; glimepiride 2 mg Oral tab 1 tab twice a day [Active]; telmisartan-hydrochlorothiazid 80-12.5 mg Oral tab 1 tab once daily [Active]; Lyrica Oral [Active]; - PMHx: 12:44 Diabetes - NIDDM; High Cholesterol; Hypertension; Migraines; bp - Immunization history:: Adult Immunizations unknown. - Social history:: Smoking status: Patient denies any tobacco usage or history of. Screenin:40 Abuse screen: Denies threats or abuse. Denies injuries from another. Nutritional bp screening: No deficits noted. Tuberculosis screening: No symptoms or risk factors identified. Fall Risk None identified. Assessment: 12:40 General: SEE TRIAGE NOTE. bp 14:10 Reassessment: [phone], Annie, daughter. ca1 14:20 Reassessment: PT RESTING QUIETLY, VS STABLE ON MONITOR. RESULTS PENDING. bp 16:58 Reassessment: PT D/C HOME AMBULATORY, DX WITH VIRAL URI. bp Vital Signs: 12:39 BP 140 / 69; Pulse 82; Resp 17; Temp 99.9; Pulse Ox 93% ; bp 14:19 BP 130 / 60; Pulse 86; Resp 16; Pulse Ox 95% ; bp 15:58 BP 140 / 70; Pulse 75; Resp 16; Pulse Ox 95% ; bp 16:58 BP 129 / 75; Pulse 66; Resp 17; Temp 98.5; Pulse Ox 95% ; bp ED Course: 11:41 Patient arrived in ED. mr 11:41 Olu Kennedy MD is Private Physician. mr 12:13 Ramona Chen, RN is Primary Nurse. dm5 12:15 Chino Castillo NP is PHCP. pm1 12:15 Christo Hearn MD is Attending Physician. pm1 12:40 Patient has correct armband on for positive identification. Bed in low position. Call bp light in reach. Side rails up X2. 12:43 Triage completed. bp 12:44 Arm band placed on. bp 13:20 CXR XRAY In Process Unspecified. EDMS 14:19 Sachin Rankin, RN is Primary Nurse. ca1 16:58 No provider procedures requiring assistance completed. Patient did not have IV access bp during this emergency room visit. Administered Medications: 15:46 Drug: Tylenol 1000 mg Route: PO; bp 16:58 Follow up: Response: Pain is decreased bp 16:30 Drug: Rocephin (cefTRIAXone) 1 grams Route: IM; Site: right gluteus; bp 16:58 Follow up: Response: No adverse reaction bp Outcome: 16:07 Discharge ordered by . pm1 16:59 Discharged to home ambulatory. bp 16:59 Condition: stable 16:59 Discharge instructions given to patient, Instructed on discharge instructions, follow up and referral plans. medication usage, Demonstrated understanding of instructions, follow-up care, medications, Prescriptions given X 3. 17:00 Patient left the ED. bp Signatures: Dispatcher [employer] EDMS Ramona Chen, RN RN dm5 Ramya Meraz mr [place], PROJECT DESIGNER PROJECT DESIGNER pm1 Sachin Rankin RN RN bp Jayshree Ricketts RN RN ca1
[2020-05-11] MEDS ORDERED: CEFTRIAXONE 1000 MG/VIAL ONE (16:31)
[2020-05-11] MEDS ORDERED: LIDOCAINE 2% MPF 5 ML VIAL ONE (16:31)
[2020-05-11 17:52] VITALS: O2SAT 95
[2020-05-11 17:57] VITALS: BP 129/75; TEMP 98.5
== END 2020-05-11 17:00 | disposition home or self-care (01) ==
LOC: ER 11:34
DX: U07.1 COVID-19 (principal); J06.9 Acute upper respiratory infection, unspecified; I10 Essential (primary) hypertension; E11.9 Type 2 diabetes mellitus without complications; E78.00 Pure hypercholesterolemia, unspecified
CPT/HCPCS: 87070; 87081; 87804 ×2; 71045; 96372; 99283; U0001

== ENCOUNTER 2024-10-12 22:36 | Emergency (ER) | payer OTHER, MEDICARE ==
[2024-10-12] MEDS ORDERED: KETOROLAC 30 MG/ML INJ ONE (23:11)
[2024-10-12] MEDS ORDERED: NA CHLORIDE 0.9% 1,000 ML ONE (23:11)
[2024-10-12] MEDS ORDERED: ONDANSETRON 4 MG/2 ML VIAL ONE (23:11)
[2024-10-12 23:17] LABS: Absolute Basophils 0.1 K/uL (0-0.5); Absolute Lymphocytes (CBC) 1.2 K/uL (0.7-4.9); Absolute Monocytes 0.3 K/uL (0.1-1.3); Absolute Neutrophil 8.9 K/uL (1.8-8.0); Basophils % 0.7 % (0-1.3); Eosinophils % 0.4 % (0-4.4); Hematocrit 40.1 % (39.6-49.0); Hemoglobin 13.6 g/dL (13.6-17.9); Lymphocytes % 11.4 % (15.3-44.8); MCH 28.9 pg (27.0-35.0); MCV 85.1 fL (80-100); Neutrophils % 84.5 % (41.7-73.7); Nucleated Red Blood Cells % 0.1 % (0-0); Platelets 230 thou/uL (152-406); RBC Red Blood Cell Count 4.72 M/uL (4.33-5.43); Red Cell Distribution Width 12.9 % (12.1-15.2)
[2024-10-12 23:36] LABS: Albumin 3.8 g/dL (3.4-5.0); Albumin/Globulin Ratio 0.9 (1.1-1.8); Anion Gap 10.7 mEq/L (5.0-15.0); Bilirubin Total 0.3 mg/dL (0.2-1.0); Globulin 4.1 g/dL (2.3-3.5); Potassium 3.7 mEq/L (3.5-5.1); Protein, Total 7.9 g/dL (6.4-8.2)
--- NOTE | 2024-10-13 00:03 | ER ---
Nurse's Notes [facility] Name: Issa Escalera Age: 69 yrs Sex: Male : 1955 Arrival Date: 10/12/2024 Time: 22:36 Bed 19 Private MD: Diagnosis: Noninfective gastroenteritis and colitis, unspecified Presentation: 10/12 22:48 Chief complaint: Patient states: c/o bouts of diarrhea after eating since the day after me1 thanksgiving. Today patient ate and became nauseated, dizzy, DURANT (5/10) and his bp was elevated. Denies abdominal pain. Coronavirus screen: Vaccine status: Patient reports receiving the 2nd dose of the covid vaccine. Ebola Screen: No symptoms or risks identified at this time. Initial Sepsis Screen: Does the patient meet any 2 criteria? No. Patient's initial sepsis screen is negative. Risk Assessment: Do you want to hurt yourself or someone else? Patient reports no desire to harm self or others. Onset of symptoms was October 02, 2024. 22:48 Method Of Arrival: Wheelchair me1 22:48 Acuity: MADELINE 3 me1 Historical: - Allergies: 22:50 No Known Drug Allergies; me1 - PMHx: 22:50 Diabetes - NIDDM; High Cholesterol; Hypertension; Migraines; prostate cancer (Unknown); me1 - PSHx: 22:50 prostatectomy (Unknown); me1 - Immunization history:: Adult Immunizations up to date. - Infectious Disease History:: Denies. - Social history:: Smoking status: Patient denies any tobacco usage or history of. Screenin:52 [facility] ED Fall Risk Assessment (Adult) History of falling in the last 3 months, jj7 including since admission No falls in past 3 months (0 pts) Confusion or Disorientation No (0 pts) Intoxicated or Sedated No (0 pts) Impaired Gait No (0 pts) Mobility Assist Device Used No (0 pt) Altered Elimination No (0 pt) Score/Fall Risk Level 0 - 2 = Low Risk Oriented to surroundings, Maintained a safe environment, Educated pt \T\ family on fall prevention, incl call for assistance when getting out of bed, Assessed \T\ reinforced patient's understanding of fall precautions. Abuse screen: Denies threats or abuse. Nutritional screening: No deficits noted. Tuberculosis screening: No symptoms or risk factors identified. Assessment: 22:52 General: Appears in no apparent distress. comfortable, Behavior is calm, cooperative, jj7 appropriate for age. Pain: Denies pain. Neuro: Denies dizziness. GI: Abdomen is flat, non-distended, Abd is soft and non tender X 4 quads. Reports nausea, Patient currently denies abdominal pain, vomiting. Vital Signs: 22:48 BP 159 / 79; Pulse 65; Resp 18; Temp 98.5; Pulse Ox 97% ; Weight 79.83 kg; Height 5 ft. me1 7 in. ; Pain 5/10; 23:30 BP 149 / 74; Pulse 56; Resp 17; Pulse Ox 99% ; Pain 0/10; jj7 23:36 BP 144 / 70; ec2 10/13 00:30 BP 131 / 71; Pulse 54; Resp 17; Temp 97.9; Pulse Ox 97% ; Pain 0/10; jj7 10/12 22:48 Body Mass Index 27.57 (79.83 kg, 170.18 cm) me1 10/12 22:48 Pain Scale: Adult me1 23:30 Pain Scale: Adult jj7 10/13 00:30 Pain Scale: Adult jj7 ED Course: 10/12 22:38 Patient arrived in ED. im 22:47 Juan Miguel Grier MD is Attending Physician. ec2 22:50 Triage completed. me1 22:50 Arm band placed on Patient placed in an exam room. me1 22:52 Patient has correct armband on for positive identification. Bed in low position. Call jj7 light in reach. Adult w/ patient. Provided Education on: USE OF CALL MARISCAL. 22:52 Inserted saline lock: 20 gauge in left antecubital area, using aseptic technique. Blood jj7 collected. Flushed with 10 mL NS. 22:59 Moiz Rizvi RN is Primary Nurse. jj7 23:09 CBC with Diff Sent. jj7 23:09 CMP Sent. jj7 23:09 Lipase Sent. jj7 10/13 00:30 No provider procedures requiring assistance completed. IV discontinued, intact, jj7 bleeding controlled, No redness/swelling at site. Pressure dressing applied. Administered Medications: 10/12 23:25 Drug: TORadol - Ketorolac IVP 15 mg IVP once Route: IVP; Site: left antecubital; jj7 23:38 Follow up: Response: Marked relief of symptoms jj7 23:25 Drug: Ondansetron IVP 4 mg IVP once; over 2 minutes Route: IVP; Site: left antecubital; jj7 23:38 Follow up: Response: Marked relief of symptoms j7 23:25 Drug: NS 0.9% IV 1000 ml IV at 1 bolus Per protocol; to be given as a bolus over 60 jj7 minutes Route: IV; Rate: 1 bolus; Site: left antecubital; 10/13 00:30 Follow up: IV Status: Completed infusion jj7 Medication: 10/12 22:52 VIS not applicable for this client. jj7 Outcome: 10/13 00:03 Discharge ordered by . ec2 00:30 Discharged to home ambulatory, with significant other, jj7 00:30 Condition: improved 00:30 Discharge instructions given to patient, significant other, Instructed on discharge instructions, medication usage, Demonstrated understanding of instructions, medications, Prescriptions given X 1, 00:40 Patient left the ED. jj7 Signatures: Moiz Rizvi RN RN jj7 Cyn Jensen Michelle, RN RN me1 Juan Miguel Grier MD MD ec2 Corrections: (The following items were deleted from the chart) 00:39 12 23:30 BP 139 / 108; Pulse 92bpm; Resp 17bpm; Pulse Ox 98%; Pain 0/10, Adult; jj7 jj7
--- NOTE | 2024-10-13 00:03 | EDPHYS ---
Physician Documentation [facility] Name: Issa Escalera Age: 69 yrs Sex: Male : 1955 Arrival Date: 10/12/2024 Time: 22:36 Bed 19 Private MD: ED Physician Juan Miguel Grier HPI: 10/12 23:07 This 69 yrs old Male presents to ER via Wheelchair with complaints of Nausea, ec2 High Blood Pressure, Dizziness, Abdominal Pain. 23:07 Patient arrives today for evaluation of headache along with nausea, some occasional ec2 nausea as well as bouts of diarrhea. Patient reports no previous abdominal surgeries. Patient reports that he has been experiencing symptoms for approximately 2 to 3 weeks. Patient reports decreased p.o. intake. Historical: - Allergies: 22:50 No Known Drug Allergies; me1 - PMHx: 22:50 Diabetes - NIDDM; High Cholesterol; Hypertension; Migraines; prostate cancer (Unknown); me1 - PSHx: 22:50 prostatectomy (Unknown); me1 - Immunization history:: Adult Immunizations up to date. - Infectious Disease History:: Denies. - Social history:: Smoking status: Patient denies any tobacco usage or history of. ROS: 23:08 Constitutional: as per hpi ec2 Exam: 23:08 Constitutional: GEN: NAD Head: atraumatic Eyes: EOMI Ears: External ears are ec2 normal. CV: regular rate LUNGS: no respiratory distress ABD: non-distended, soft, nontender, not guarding, not rigid SKIN: no evidence of rashes MSK: no evidence of trauma Vital Signs: 22:48 BP 159 / 79; Pulse 65; Resp 18; Temp 98.5; Pulse Ox 97% ; Weight 79.83 kg; Height 5 ft. me1 7 in. ; Pain 5/10; 23:30 BP 149 / 74; Pulse 56; Resp 17; Pulse Ox 99% ; Pain 0/10; jj7 23:36 BP 144 / 70; ec2 1208 00:30 BP 131 / 71; Pulse 54; Resp 17; Temp 97.9; Pulse Ox 97% ; Pain 0/10; jj7 10/12 22:48 Body Mass Index 27.57 (79.83 kg, 170.18 cm) me1 10/12 22:48 Pain Scale: Adult me1 23:30 Pain Scale: Adult jj7 12 00:30 Pain Scale: Adult jj7 MDM: 10/12 22:58 Medical Screening Exam initiated ec2 23:08 Data reviewed: vital signs, nurses notes. ED course: Patient arrives today due to ec2 concern for abdominal pain along with nausea as well as diarrhea. Examination is revealing for well-appearing nontoxic individual with a reassuring abdominal examination. Will obtain lab work. Differential clues process such as pancreatitis, gastroenteritis, doubt obstruction, doubt appendicitis or gallbladder pathology. Will forego any advanced imaging such as CT scan of the abdomen pelvis at this time and wait for lab work.. 23:48 ED course: On reassessment patient is well-appearing no acute distress, reports ec2 improvement in his nausea. Will discharge home, suspect gastroenteritis. Return precautions given. Instructed to follow-up PCP.. 10/12 22:59 Order name: CBC with Diff; Complete Time: 23:33 ec2 10/12 22:59 Order name: CMP; Complete Time: 23:40 ec2 10/12 22:59 Order name: Lipase; Complete Time: 23:40 ec2 10/12 22:59 Order name: IV Saline Lock; Complete Time: 23:09 ec2 10/12 22:59 Order name: Labs collected and sent; Complete Time: 23:09 ec2 Administered Medications: 23:25 Drug: TORadol - Ketorolac IVP 15 mg IVP once Route: IVP; Site: left antecubital; jj7 23:38 Follow up: Response: Marked relief of symptoms jj7 23:25 Drug: Ondansetron IVP 4 mg IVP once; over 2 minutes Route: IVP; Site: left antecubital; jj7 23:38 Follow up: Response: Marked relief of symptoms jj7 23:25 Drug: NS 0.9% IV 1000 ml IV at 1 bolus Per protocol; to be given as a bolus over 60 jj7 minutes Route: IV; Rate: 1 bolus; Site: left antecubital; 10/13 00:30 Follow up: IV Status: Completed infusion jj7 Disposition Summary: 10/13/24 00:03 Discharge Ordered Notes: Location: Home ec2 Condition: Stable ec2 Diagnosis - Noninfective gastroenteritis and colitis, unspecified ec2 Followup: ec2 - With: Private Physician - When: - Reason: Re-evaluation by your physician Discharge Instructions: - Discharge Summary Sheet ec2 - Viral Gastroenteritis, Adult, [id number] ec2 Forms: - Medication Reconciliation Form ec2 - Antibiotic Education ec2 - Prescription Opioid Use ec2 - Patient Portal Instructions ec2 - Leadership Thank You Letter ec2 Prescriptions: - Zofran 4 mg Oral Tablet - take 1 tablet ORAL route every 12 hours As needed; 20 tablet; Refills: 0, ec2 Product Selection Permitted Signatures: Dispatcher [employer] Moiz Handley RN RN jj7 Scarlett Fierro RN RN me1 Juan Miguel Grier MD MD ec2 Corrections: (The following items were deleted from the chart) 10/12 23:00 23:00 CBC+H.LAB.BRZ ordered. EDMS EDMS 23:00 23:00 COMPREHENSIVE METABOLIC PANEL+C.LAB.BRZ ordered. EDMS EDMS 23:00 23:00 LIPASE+C.LAB.BRZ ordered. EDMS EDMS
[2024-10-13 06:02] VITALS: BP 131/71; TEMP 97.9; O2SAT 97
== END 2024-10-13 00:40 | disposition home or self-care (01) ==
LOC: ER 22:36
DX: K52.9 Noninfective gastroenteritis and colitis, unspecified (principal); E11.9 Type 2 diabetes mellitus without complications; I10 Essential (primary) hypertension
CPT/HCPCS: 96361; 85025; 36415; 83690; 80053; 96375; 96374; 99284; J2405; J7030